=== PATIENT | male | born 1940 | race Caucasian/White ===

== ENCOUNTER 2020-10-29 17:25 | Outpatient (CLI) | payer MEDICARE | END 2020-10-29 17:26 | disposition critical access hospital (66) | LOC: EMS 17:25 | DX: Z04.3 Encounter for examination and observation following other accident (principal); M25.552 Pain in left hip; R06.02 Shortness of breath | CPT/HCPCS: A0425; A0429 ==

== ENCOUNTER 2020-10-29 17:45 | Inpatient (IN) | payer MEDICARE ==
[2020-10-29] MEDS ORDERED: diltiaZEM INJ 5 MG/ML VIAL IVP STA (18:12)
[2020-10-29 18:15] LABS: BASOPHILS % (AUTO) 0.3 %; EOSINOPHILS # (AUTO) 0.3 10^3/uL (0.0-0.7); EOSINOPHILS % (AUTO) 1.9 %; HGB - HEMOGLOBIN 9.9 g/dL (14.0-18.0); LYMPHOCYTES # (AUTO) 1.3 10^3/uL (1.5-3.5); LYMPHOCYTES % (AUTO) 8.9 %; MEAN CORPUSCULAR HEMOGLOBIN 25.1 pg (27.0-31.0); MEAN CORPUSCULAR VOLUME 83.8 fL (80.0-94.0); MEAN PLATELET VOLUME 10.7 fL (7.4-11.4); MONOCYTES # (AUTO) 0.7 10^3/uL (0.0-1.0); MONOCYTES % (AUTO) 4.8 %; NEUTROPHILS # (AUTO) 11.8 10^3/uL (1.5-6.6); NEUTROPHILS % (AUTO) 83.3 %; PLT - PLATELET COUNT 475 10^3/uL (130-450); RED BLOOD COUNT 3.94 10^6/uL (4.70-6.10); RED CELL DISTRIBUTION WIDTH 17.2 % (12.0-15.0); WHITE BLOOD COUNT 14.1 x10^3/uL (4.8-10.8)
[2020-10-29] MEDS ORDERED: SODIUM CHLORIDE 0.9% 1,000 ML IV STA ×2 (18:15)
[2020-10-29] MEDS ORDERED: IPRATROPIUM/ALBUTEROL 3 ML NEB INH STA (18:16)
--- NOTE | 2020-10-29 18:16 | ED Physician Documentation ---
History of Present Illness - Stated complaint Stated Complaint: GLF - Chief complaint Chief Complaint: Resp - History obtained from History obtained from: Patient, EMS - History of Present Illness Timing: Today Pain level max: 5 Pain level now: 4 - Additonal information Additional information: Patient is an 79-year-old male who presents to the emergency department stating that he tripped and fell at home today. He was unable to get up off the ground. He has COPD and is on 3 L of home O2. He was found by EMS with an O2 sat of 80. He denies any recent illnesses. Nothing makes it better or worse. He states that his left hip does hurt. Unsure if he struck his head or not. Is not on blood thinners. States his tetanus shot is up-to-date Review of Systems Ten Systems: 10 systems reviewed and negative Constitutional: denies: Fever, Chills Ears: denies: Ear pain Nose: denies: Rhinorrhea / runny nose, Congestion Cardiac: denies: Chest pain / pressure Respiratory: denies: Cough GI: denies: Nausea, Vomiting, Diarrhea, Hematemesis, Bloody / black stool Skin: denies: Rash Musculoskeletal: denies: Neck pain, Back pain Neurologic: denies: Headache PD PAST MEDICAL HISTORY - Past Medical History Cardiovascular: None Respiratory: COPD Neuro: None Endocrine/Autoimmune: None - Present Medications Home Medications: Ambulatory Orders Medication Instructions Recorded Confirmed Albuterol 1 puffs INH DAILY 12/13/19 10/29/20 Ipratropium [Atrovent] 0.5 mg INH TID #30 neb 12/13/19 10/29/20 - Allergies Allergies/Adverse Reactions: Allergies Allergy/AdvReac Type Severity Reaction Status Date / Time No Known Drug Allergies Allergy Verified 10/29/20 17:56 - Social History Does the pt smoke?: No Smoking Status: Never smoker Does the pt drink ETOH?: No Does the pt have substance abuse?: No PD ED PE NORMAL - Vitals Vital signs reviewed: Yes - General General: Alert and oriented X 3, No acute distress, Other (pale appearing) - HEENT HEENT: PERRL, Moist mucous membranes, Pharynx benign - Neck Neck: Supple, no meningeal sign - Cardiac Cardiac: Other (tachycardic) - Respiratory Respiratory: Other (diminished BS bilaterally. ) - Abdomen Abdomen: Soft, Non tender, Non distended - Derm Derm: Warm and dry - Extremities Extremities: Other (TTP over the L hip, limited ROM 2/2 pain. abrasion to the left elbow. otherwise normal extremity exam. ) - Neuro Neuro: Alert and oriented X 3 - Psych Psych: Normal mood, Normal affect Results - Vitals Vitals: Vital Signs - 24 hr 10/29/20 10/29/20 10/29/20 17:50 18:28 18:31 Temperature 36.8 C Heart Rate 146 H 114 H 118 H Respiratory 18 26 H 36 H Rate Blood Pressure 148/95 H 115/75 O2 Saturation 96 92 10/29/20 10/29/20 10/29/20 19:01 19:07 19:30 Temperature Heart Rate 132 H 127 H 127 H Respiratory 37 H 61 H 23 Rate Blood Pressure 144/81 H 142/79 H O2 Saturation 88 L 92 10/29/20 10/29/20 10/29/20 20:35 21:02 21:30 Temperature Heart Rate 134 H 139 H 141 H Respiratory 33 H 30 H 33 H Rate Blood Pressure 127/88 H 128/80 148/84 H O2 Saturation 95 92 89 L 10/29/20 21:50 Temperature Heart Rate 138 H Respiratory 31 H Rate Blood Pressure 126/69 O2 Saturation 91 L Oxygen O2 Source Nasal cannula Oxygen Flow Rate 3 - Labs Labs: Laboratory Tests 10/29/20 10/29/20 10/29/20 18:10 18:10 18:10 WBC 14.1 H RBC 3.94 L Hgb 9.9 L Hct 33.0 L MCV 83.8 MCH 25.1 L MCHC 30.0 L RDW 17.2 H Plt Count 475 H MPV 10.7 Neut # (Auto) 11.8 H Lymph # (Auto) 1.3 L Terry # (Auto) 0.7 Eos # (Auto) 0.3 Baso # (Auto) 0.0 Absolute Nucleated RBC 0.00 Nucleated RBC % 0.0 Sodium 139 Potassium 4.6 Chloride 97 L Carbon Dioxide 33 H Anion Gap 9.0 BUN 16 Creatinine 0.6 Estimated GFR (MDRD) 129 Glucose 173 H Calcium 8.8 Total Bilirubin 0.4 AST 17 ALT 14 Alkaline Phosphatase 54 Troponin I High Sens 21.9 H* Total Protein 7.1 Albumin 3.5 Globulin 3.6 Albumin/Globulin Ratio 1.0 Lipase 27 - Rads (name of study) cxr Radiology: Prelim report reviewed, EMP read contemporaneously, See rad report (No acute cardiopulmonary abnormality. Emphysematous change.) head CT Radiology: Prelim report reviewed, EMP read contemporaneously, See rad report (No acute intracranial abnormality) cervical spine CT Radiology: Prelim report reviewed, EMP read contemporaneously, See rad report (IMPRESSION: No acute osseous abnormality. Secretions in the upper trachea. The fluid in the upper esophagus. Patient may be at increased risk for aspiration.) CT LE Radiology: Prelim report reviewed, EMP read contemporaneously, See rad report (1. Nondisplaced fracture of the left femoral neck. 2. Bones are osteopenic. 3. Prominent stool the colon is suspicious for constipation. 4. Abdominal aortic aneurysm measuring 3.3 cm. ) PD MEDICAL DECISION MAKING - ED course Complexity details: reviewed results, re-evaluated patient, considered differential, d/w patient, d/w family, d/w financial consultant ED course: 79-year-old male presents to the emergency department after a fall. He is very pale appearing. Family states that this is normal for him and he never goes outside or is exposed to sunlight. Patient has a significant history of COPD. He was given Solu-Medrol and several breathing treatments here. His oxygenation did improve, he is on 3 L normally at home. The patient also was significantly tachycardic and 10 mg of diltiazem was given he does appear to be in atrial fibrillation with rapid ventricular response. Patient states he does not have a history of this. Will be placed on a diltiazem drip to control his rate. Initial x-ray did not reveal a fracture of the left hip, however CT was performed and this does show a nondisplaced left femoral neck fracture. Discussed the case with Dr. Silverio, he will consult on the patient in the morning. Reviewing the images, this may be a nonoperative fracture. Discussed this with the patient and his daughter. Also discussed CODE STATUS with the patient and his daughter. He does not want CPR or intubation. He would like to be DNR. Patient will be admitted for further care. This document was made in part using voice recognition software. While efforts are made to proofread this document, sound alike and grammatical errors may occur. Departure - Departure Disposition: [facility] DC/Xfer Clinical Impression: COPD exacerbation, New onset atrial fibrillation, Atrial fibrillation with rapid ventricular response Fracture of femoral neck, left Qualifiers: Encounter type: initial encounter Fracture type: closed Qualified Code(s): S72.002A - Fracture of unspecified part of neck of left femur, initial encounter for closed fracture Condition: Stable
[2020-10-29 18:30] LABS: ALBUMIN 3.5 g/dL (3.2-5.5); BILIRUBIN,TOTAL 0.4 mg/dL (0.2-1.0); CALCIUM 8.8 mg/dL (8.5-10.3); CREATININE 0.6 mg/dL (0.6-1.2); POTASSIUM 4.6 mmol/L (3.5-5.0); TOTAL PROTEIN 7.1 g/dL (6.7-8.2)
[2020-10-29] MEDS ORDERED: methylPREDNISolone SUCCINATE 125 MG/2 ML VIAL IVP STA (18:47)
[2020-10-29] MEDS ORDERED: ALBUTEROL NEB 2.5 MG/3 ML INH ONE (18:55)
--- NOTE | 2020-10-29 19:11 | XRAY Report ---
PROCEDURE: Chest 1 View X-Ray INDICATIONS: dyspnea TECHNIQUE: One view of the chest was acquired. COMPARISON: CXR 12/13/2019. FINDINGS: Surgical changes and devices: None. Lungs and pleura: No pleural effusions or pneumothorax. No consolidation. Prominent lung volumes. Em physematous change. Mediastinum: Mediastinal contours appear normal. Heart size is normal. Bones and chest wall: No suspicious bony lesions. Overlying soft tissues appear unremarkable. IMPRESSION: No acute cardiopulmonary abnormality. Emphysematous change. Reviewed by: Telly Ojeda MD on 10/29/2020 7:10 PM PDT Approved by: Telly Ojeda MD on 10/29/2020 7:10 PM PDT Station ID: [id number]
--- NOTE | 2020-10-29 19:13 | XRAY Report ---
PROCEDURE: Pelvis 1 View INDICATIONS: fall, left hip pain TECHNIQUE: 1 view(s) of the pelvis acquired. COMPARISON: None. FINDINGS: Bones: No fractures is identified on this single projection. No dislocation. No suspicious bony les ions. Soft tissues: Prominent stool the colon. No suspicious soft tissue calcifications. IMPRESSION: No fracture identified on this single projection. Prominent stool the visualized colon. Reviewed by: Telly Ojeda MD on 10/29/2020 7:12 PM PDT Approved by: Telly Ojeda MD on 10/29/2020 7:12 PM PDT Station ID: [id number]
[2020-10-29] MEDS ORDERED: ALBUTEROL NEB 2.5 MG/3 ML INH STA ×2 (19:26→22:11)
--- NOTE | 2020-10-29 20:58 | CT Report ---
PROCEDURE: HEAD WO INDICATIONS: fall head injury TECHNIQUE: Noncontrast 4.5 mm thick angled axial sections acquired from the foramen magnum to the vertex. For r adiation dose reduction, the following was used: automated exposure control, adjustment of mA and/or kV according to patient size. COMPARISON: None. FINDINGS: Image quality: Excellent. CSF spaces: Basal cisterns are patent. No extra-axial fluid collections. Ventricles are normal in size and shape. Brain: No midline shift. No intracranial masses or hemorrhage. No area of hypodensity in a large va scular distribution to suggest infarction. Periventricular hypodensity consistent with chronic microv ascular ischemic disease. Skull and face: Calvarium and visualized facial bones are intact, without suspicious lesions. Sinuses: Visualized sinuses and mastoids are clear. IMPRESSION: No acute intracranial abnormality. Reviewed by: Telly Ojeda MD on 10/29/2020 8:57 PM PDT Approved by: Telly Ojeda MD on 10/29/2020 8:57 PM PDT Station ID: [id number]
--- NOTE | 2020-10-29 21:01 | CT Report ---
PROCEDURE: CERVICAL SPINE WO INDICATIONS: fall, neck injury TECHNIQUE: Noncontrast 3 mm thick sections acquired from the skull base to the T4 level. Sagittal and coronal r eformats were then constructed. For radiation dose reduction, the following was used: automated exp osure control, adjustment of mA and/or kV according to patient size. COMPARISON: None. FINDINGS: Image quality: Fair. Bones: No fractures or dislocations. Moderate degenerative change in the cervical spine. Visualized superior ribs are intact. Soft tissues: Prevertebral soft tissues are normal in thickness. No paravertebral hematomas. No ap ical pneumothoraces. Particular thickening at the lung apices. There is trace secretions in the trach ea. There is fluid in the upper esophagus. IMPRESSION: No acute osseous abnormality. Secretions in the upper trachea. The fluid in the upper esophagus. Patient may be at increased risk f or aspiration. Reviewed by: Telly Ojeda MD on 10/29/2020 9:00 PM PDT Approved by: Telly Ojeda MD on 10/29/2020 9:00 PM PDT Station ID: [id number]
--- NOTE | 2020-10-29 21:06 | CT Report ---
PROCEDURE: LOWER EXTREMITY WO - LT INDICATIONS: fall, hip pain TECHNIQUE: Noncontrast 3 mm axial sections acquired of the left hip, with coronal and sagittal reformats. COMPARISON: 1 view pelvic radiograph earlier today. FINDINGS: Image quality: Fair. Bones: Nondisplaced fracture of the left femoral neck. No dislocation. The bones are osteopenic. Mod erate hip DJD bilaterally. No suspicious osseous lesion. Soft tissues: No large hematoma. No free fluid in the pelvis. Infrarenal abdominal aortic aneurysm m easuring 3.3 cm. Right common iliac artery measures 3.3 cm. Left common iliac artery measures 1.9 cm. There is prominent stool the colon. IMPRESSION: 1. Nondisplaced fracture of the left femoral neck. 2. Bones are osteopenic. 3. Prominent stool the colon is suspicious for constipation. 4. Abdominal aortic aneurysm measuring 3.3 cm. Reviewed by: Telly Ojeda MD on 10/29/2020 9:05 PM PDT Approved by: Telly Ojeda MD on 10/29/2020 9:05 PM PDT Station ID: [id number]
[2020-10-29] MEDS ORDERED: fentaNYL 100 MCG/2 ML VIAL IVP STA (21:37)
[2020-10-29] MEDS ORDERED: DILTIAZEM 125 MG in DEXTROSE 5% 100 ML IV STA (21:38)
[2020-10-29] MEDS ORDERED: ONDANSETRON 4 MG/2 ML VIAL IVP PRN (21:40)
[2020-10-29] MEDS ORDERED: HYDROcod/ACETAM 5/325 MG TABLET PO PRN (21:40)
[2020-10-29] MEDS ORDERED: ACETAMINOPHEN 325 MG TABLET PO PRN (21:40)
[2020-10-29] MEDS ORDERED: diltiaZEM INJ 5 MG/ML VIAL ONE (21:52)
--- NOTE | 2020-10-29 21:53 | HISTORY & PHYSICAL EXAMINATION ---
Chief Complaint - Chief Complaint Chief Complaint: dyspnea, hypoxia, afib with rvr, ground level fall with left hip pain History of Present Illness - Admitted From Admitted From:: [facility] ED - History Obtained From Records Reviewed: yes History obtained from: patient - History of Present Illness HPI Comment/Other: Patient he is very frail/cachectic 79-year-old male who presented to the ED after a fall. This happened around 5 PM. He reported that his legs just gave out on the him while he was trying to go to make something for dinner. It was an unwitnessed fall. His neighbor came over to bring him something to eat and found him on the floor. He had just fallen. He lives alone but his daughter brings him food 2-3 times weekly. Also, a home service called [id number] Comes to his house twice a week and helps him with shaving, bathing and cutting his hand. The patient denied chest pain, abdominal pain, nausea, vomiting, fever or chills. When EMS arrived the patient's oxygen saturation was 80%. He has severe/end- stage COPD and emphysema and uses 3 L of oxygen via nasal cannula at home. His daughter who was at bedside reports that the patient's breathing has been progressively worsening. In the ED he was noted to be in atrial fibrillation with rapid ventricular rhythm, with a heart rate as high as the 140s. He was given a couple doses of [id number] IV boluses and then started on a diltiazem drip. Work-up also included a CT of the lower extremities which showed a Nondisplaced left femoral neck fracture. He is being admitted for further treatment. History - Past Medical History Cardiovascular: reports: None Respiratory: reports: COPD Neuro: reports: None Endocrine/Autoimmune: reports: None MRSA Hx?: No - Past Surgical History General: reports: Other (x ap for adhesions) - Family & Social History Family History Comment/Other: His daughter who helped provide the history denies any significant family history Living arrangement: At home Living Situation: Alone Social History Notes: The patient lives at home alone. His daughter brings him food 2-3 times a week. A home service by name [id number] comes twice a week and helps him with shaving, bathing and cutting his hair. The patient has smoked for over 70 years and for a long time smoked 3 packs/day. He quit smoking in April 2020. He quit drinking alcohol 27 years ago and does not use any illicit drugs. - POLST Patient has POLST: No POLST Status: DNR Meds/Allgy - Home Medications Home Medications: Ambulatory Orders Medication Instructions Recorded Confirmed Albuterol 1 puffs INH DAILY 12/13/19 10/29/20 Ipratropium [Atrovent] 0.5 mg INH TID #30 neb 12/13/19 10/29/20 - Allergies Allergies/Adverse Reactions: Allergies Allergy/AdvReac Type Severity Reaction Status Date / Time No Known Drug Allergies Allergy Verified 10/29/20 17:56 Review of Systems - Constitutional Constitutional: reports: Weakness, Weight loss, Other (frail, cachexic, pale). denies: Fatigue, Fever, Chills - Eyes Eyes: denies: Pain, Vision loss - Ears, Nose & Throat Ears, Nose & Throat: denies: Ear pain - Cardiovascular Cariovascular: reports: Irregular heart rate. denies: Chest pain, Edema, Lightheadedness, Syncope - Respiratory Respiratory: reports: Wheezing, SOB at rest, SOB with exertion. denies: Cough, Sputum production - Gastrointestinal Gastrointestinal: denies: Abdominal pain, Abdominal distention, Nausea, Vomiting, Reflux/heartburn - Genitourinary Genitourinary: denies: Dysuria, Frequency, Urgency, Hematuria - Musculoskeletal Musculoskeletal: reports: Joint pain (left hip). denies: Muscle pain, Back pain, Muscle aches - Integumentary Integumentary: denies: Rash, Pruritis, Lesions, Dryness - Neurological Neurological: denies: General weakness, Focal weakness, Headache, Dizziness - Psychiatric Psychiatric: denies: Depression, Anxiety - Endocrine Endocrine: denies: Polyuria, Polydypsia - Hematologic/Lymphatic Hematologic/Lymphatic: denies: Anemia, Bruising, Petechiae Prior Level of Functionality: The patient lives at home alone. His daughter brings him food 2-3 times a week. A home service by name [id number] comes twice a week and helps him with shaving, bathing and cutting his hair. He gets around walking on his own but this has become difficult to do lately due to his progressively worsening breathing. Exam - Vital Signs Vital Signs: Vital Signs x48h Temp Pulse Resp BP Pulse Ox 06/16/21 21:50 138 H 31 H 126/69 91 L 10/29/20 21:30 141 H 33 H 148/84 H 89 L 10/29/20 21:02 139 H 30 H 128/80 92 10/29/20 20:35 134 H 33 H 127/88 H 95 10/29/20 19:30 127 H 23 142/79 H 92 10/29/20 19:07 127 H 61 H 10/29/20 19:01 132 H 37 H 144/81 H 88 L 10/29/20 18:31 118 H 36 H 115/75 92 10/29/20 18:28 114 H 26 H 10/29/20 17:50 36.8 C 146 H 18 148/95 H 96 - Physical Exam General Appearance: positive: Moderate distress, Severe distress, Lethargic, Other (Frail, ematiated, cachexic, pale) Eyes Bilateral: positive: PERRL, EOMI ENT: positive: Dry mucous membranes Neck: positive: No JVD, Trachea midline Respiratory: positive: Chest non-tender, Wheezes, Other (decreased breath sounds) Cardiovascular: positive: No murmur, Irregularly irregular, Tachycardia Abdomen: positive: Non-tender, No organomegaly, Nml bowel sounds, No distention. negative: Guarding, Rebound Back: positive: Nml inspection Skin: positive: No rash, Warm, Dry, Pallor Extremities: positive: No pedal edema Neurologic/Psychiatric: positive: Oriented x3, Mood/affect nml Conclusion/Plan - Problem List (1) COPD exacerbation Conclusion/Plan: End Stage Patient is normally on 3 L of oxygen at home. He currently requires 5 L of oxygen To keep his oxygen saturation above 90. Chest x-ray was unremarkable for any acute cardiopulmonary abnormality DuoNeb ordered every 4 hours as needed. Solu-Medrol 80 mg IV 3 times daily ordered. Budesonide and formeterol orderedas well The patient is frail, emaciated, cachectic and very pale. As a result of his physical appearance and clinical presentation I had a further conversation with the patient's daughter highlighting my concern that the patient may be eminently dying. His respiratory status and overall health status would likely limit the ability for any surgery. The left hip fracture further contributes to an increased morbidity. I expressed concern that the patient may not last the night. She is currently overwhelmed by the news and will need some time to process it. However she is agreeable to talking with the hospice service and being informed of the services they can offer. This will be done in the morning. (2) Atrial fibrillation with rapid ventricular response Conclusion/Plan: Patient is on diltiazem drip. 2D echocardiogram ordered for the morning. (3) NSTEMI (non-ST elevated myocardial infarction) Conclusion/Plan: Initial troponin was 21.9. Next check was 174.2 then 302.1. I discussed this finding with the patient's daughter Estephania informing her of what they mean and what further work up and intervention would require. She does not wish to undertake any further cardiac work up or treatment. We will proced with the plan of contacting the hospice team in the morning. (4) Nondisplaced fracture of neck of left femur Conclusion/Plan: Pain management with Tylenol, [place] and oral Dilaudid as needed. Dr. Silverio of orthopedic surgery was contacted by Dr. Tamayo. He will see the patient in the morning Official orthopedic consult placed. (5) Leukocytosis Conclusion/Plan: Reactive versus infectious. Patient's white blood cell count is 14. He is afebrile. We will monitor for now. If worsening with a.m. labs, will consider getting blood cultures, UA and possibly starting on antibiotics. (6) Constipation Conclusion/Plan: Miralax and magnesium citrate ordered - Lab Results Fish Bones: 10/30/20 05:19 10/30/20 05:19 Core Measures - Anticipated LOS I expect patient to be DC'd or transferred within 96 hours.: Yes - DVT/VTE - Prophylaxis VTE/DVT Device ordered at admit?: Yes
[2020-10-29] MEDS ORDERED: diltiaZEM INJ 125 MG in DEXTROSE 5% 100 ML IV SCH (22:00)
[2020-10-29] MEDS ORDERED: polyethylene glycoL 3350 17 GM PACKET PO PRN (22:09)
[2020-10-29] MEDS ORDERED: HYDROmorphone 0.5 MG/0.5 ML SYRINGE IVP PRN (22:09)
[2020-10-29] MEDS ORDERED: MAGNESIUM CITRATE 296 ML BOTTLE PO STA (22:10)
[2020-10-29 22:24] LABS: B. PARAPERTUSSIS- RESP PCR PAN NOT DETECTED; B. PERTUSSIS- RESP PCR PANEL NOT DETECTED; C. PNEUMONIAE- RESP PCR PANEL NOT DETECTED; CORONAVIRUS 229E-RESP PCR NOT DETECTED; CORONAVIRUS HKU1-RESP PCR NOT DETECTED; CORONAVIRUS NL63-RESP PCR NOT DETECTED; CORONAVIRUS OC43-RESP PCR NOT DETECTED; HUMAN METAPNEUMOVIRUS NOT DETECTED; INFLUENZA A- RESP PCR PANEL NOT DETECTED; INFLUENZA B - RESP PCR PANEL NOT DETECTED; M. PNEUMONIAE- RESP PCR PANEL NOT DETECTED; PARAINFLUENZA VIRUS 1 NOT DETECTED; PARAINFLUENZA VIRUS 2 NOT DETECTED; PARAINFLUENZA VIRUS 3 NOT DETECTED; PARAINFLUENZA VIRUS 4 NOT DETECTED; RHINOVIRUS/ENTEROVIRUS NOT DETECTED; RSV- RESP PCR PANEL NOT DETECTED; SARS-CoV-2 -RESP PCR PANEL NOT DETECTED
[2020-10-29] MEDS: MORPHINE 2 MG/ML CARPUJECT IVP PRN (23:35)
[2020-10-30] MEDS: IPRATROPIUM/ALBUTEROL 3 ML NEB INH PRN ×2 (00:57→20:17)
[2020-10-30] MEDS: methylPREDNISolone SUCCINATE 40 MG/ML VIAL IVP SCH ×4 (01:00→21:33)
[2020-10-30] MEDS: SODIUM CHLORIDE 0.9% 1,000 ML IV SCH ×2 (01:33→08:55)
[2020-10-30] MEDS: MORPHINE 2 MG/ML CARPUJECT IVP PRN ×4 (01:34→20:09)
[2020-10-30 05:37] LABS: BASOPHILS % (AUTO) 0.2 %; CALCIUM 8.4 mg/dL (8.5-10.3); CREATININE 0.6 mg/dL (0.6-1.2); HCT - HEMATOCRIT 31.1 % (42.0-52.0); HGB - HEMOGLOBIN 9.4 g/dL (14.0-18.0); LYMPHOCYTES % (AUTO) 2.3 %; MEAN CORPUSCULAR HEMOGLOBIN 25.4 pg (27.0-31.0); MEAN CORPUSCULAR HGB CONC 30.2 g/dL (32.0-36.0); MEAN CORPUSCULAR VOLUME 84.1 fL (80.0-94.0); MEAN PLATELET VOLUME 11.6 fL (7.4-11.4); NEUTROPHILS % (AUTO) 95.6 %; PLT - PLATELET COUNT 416 10^3/uL (130-450); POTASSIUM 5.5 mmol/L (3.5-5.0); RED CELL DISTRIBUTION WIDTH 17.6 % (12.0-15.0); WHITE BLOOD COUNT 30.2 x10^3/uL (4.8-10.8)
[2020-10-30 05:49] LABS: ABNORMAL LYMPHS % (MANUAL) 0 %
[2020-10-30 06:15] LABS: BAND NEUTROPHILS % (MANUAL) 16 %; DIFFERENTIAL COMMENT MANUAL DIFFERENTIAL; LYMPHOCYTES # (MANUAL) 1.5 10^3/uL (1.5-3.5); LYMPHOCYTES % (MANUAL) 5 %; MONOCYTES # (MANUAL) 0.3 10^3/uL (0.0-1.0); NEUTROPHILS # (MANUAL) 28.4 10^3/uL (1.5-6.6); PLATELET ESTIMATE, MANUAL NORMAL (130-450,000) (NORMAL); RBC MORPHOLOGY (MULTIPLE) NORMAL APPEARANCE (NORMAL)
[2020-10-30] MEDS: SODIUM CHLORIDE FLUSH 0.9% 10 ML SYRINGE IVP SCH ×4 (07:04→20:10)
[2020-10-30] MEDS: BUDESONIDE 0.5 MG/2 ML NEB INH SCH ×2 (07:18→20:16)
[2020-10-30] MEDS: FORMOTEROL FUMARATE NEB 20 MCG/2 ML INH SCH ×2 (07:18→20:17)
--- NOTE | 2020-10-30 08:59 | PHARMACY PROGRESS NOTE ---
- Best Possible Medication History Admit Date and Time: 10/29/202139 Processed by: Nursing Medication History completed: Yes Patient Interview: Completed (med rec completed by nursing) As the person ultimately responsible for medication therapy, providers are able to order a medication from an existing home medication list in [facility] via the "Reconcile Routine" prior to Confirmation of that medication by business support liaison. Such practice is discouraged except when the physician, in their clinical judgment, deems that a medical need exists for a medication without regard to previous use.
--- NOTE | 2020-10-30 12:21 | PROVIDER PROGRESS NOTE ---
Assessment/Plan - Problem List (1) Acute respiratory failure with hypoxia Assessment/Plan: Patient has baseline chronic desaturation requiring 3 L of oxygen at home, which he uses for COPD This exacerbation is likely from COPD exacerbation and possibly CHF from an NY Continue with IV steroids, nebs, supplemental oxygen. Treat the underlying cardiac problem of A. fib with RVR and management of the acute NY (2) COPD exacerbation Assessment/Plan: Continue with empiric treatment with IV steroids, nebs and supplemental oxygen (3) NSTEMI (non-ST elevated myocardial infarction) Assessment/Plan: EKG changes are diffuse because of the rapid A. fib. The troponins are climbing, the last one was 300. We will order an Echo to assess LV regional wall motion and LVEF Will continue with Cardizem for rate control, changing over to p.o. Cardizem or p.o. beta-ilir when he awakens and can swallow We will not give Lovenox or heparin at a therapeutic dose because of the fractured hip and risk of bleeding into that fracture area. Will give Lipitor if he awakens more to swallow. Aspirin would be used, however he is too somnolent to swallow, and turning him for per rectum dosing would be too painful. He is a very poor candidate for undergoing hip surgery, in the face of COPD exacerbation and an acute myocardial infarction. This was discussed with the Orthopedist and also with the daughter and son-in-law who are at the bedside. Continue with supportive care. The daughter is considering transitioning his care to just comfort and care under Hospice for him. Because his respiratory and cardiac status are so poor, he may be imminently dying. But if he is survives these first 24 hours, will order Hospice to see him. (4) New onset atrial fibrillation Assessment/Plan: It appears the etiology of this new Afib is an acute NY, since the troponins are more than doubling. We will also check a TSH to rule out hyperthyroidism. IV Cardizem for rate control will be tapered to off as p.o. Cardizem is started. Currently his CHADS2 score is 1 (age), until we know his EF by Echo, it may be 2 (CHF). However, because of his femur fracture, he is not a candidate for full dose anticoagulation due to potential bleeding into the new fracture. Aspirin would be used, however he is too somnolent to swallow, and turning him for per rectum dosing would be too painful. (5) Atrial fibrillation with rapid ventricular response Assessment/Plan: Continue management as written above for rate control and he is not an anticoagulation candidate but could use daily aspirin for stroke prophylaxis. (6) Fracture of femoral neck, left Qualifiers: Encounter type: subsequent encounter Fracture type: closed Qualified Code(s): S72.002A - Fracture of unspecified part of neck of left femur, initial encounter for closed fracture Assessment/Plan: He is not a candidate for surgery which would be extremely high risk in the face of acute NY and COPD exacerbation and underlying cachexia and malnutrition This plan would make him bedbound for the rest of his life. This was explained to the family at bedside today. Continue with pain control meds. Awaiting any further recommendations from Orthopedics. (7) Pulmonary cachexia due to COPD Assessment/Plan: Daughter described to me that he has been unable to eat for a long time as it is "too difficult to eat because of being constantly short of breath". He also is a poor drinker (hydration). If he does survive, he will need nutritional assistance for increase calorie intake. (8) Anemia Assessment/Plan: Despite being hypoxic chronically, he does not have a high hemoglobin therefore he is a fairly anemic for his state. I suspect this is anemia of chronic disease secondary to severe malnutrition We will check B12, folate levels and iron stores and consider p.o. replacement if low. (9) Severe protein-calorie malnutrition Assessment/Plan: This patient has severe cachexia, his ribs and facial bones are visible under his skin, musculature of his whole body is extremely emaciated. Dietary consult will be ordered. (10) Elevated WBC count Assessment/Plan: This could be demargination from extreme stress due to the acute NY and the fracture. Source of infection is negative thus far but his urinalysis is still pending and possibly a pneumonia that has not blossomed because of dehydration. Follow CBC daily. Consider starting empiric antibiotics if any area appears to have a source of infection. (11) Somnolence Assessment/Plan: He has only received 1 dose of morphine IV and is sleeping all day from it. His respiratory status however appears comfortable and he is obviously not in pain. We will decrease the amount and frequency of iv morphine. - Current Meds Current Meds: Current Medications Generic Name Dose Route Start Last Admin Trade Name Freq PRN Reason Stop Dose Admin Albuterol/Ipratropium 3 ml 10/29/20 21:50 10/30/20 00:57 Ipratropium/Albuterol 3 Ml Neb INH 3 ml Q4HR PRN Administration Wheezing Budesonide 0.5 mg 10/30/20 07:00 10/30/20 07:18 Budesonide 0.5 Mg/2 Ml Neb INH 0.5 mg RTBID MO Administration Formoterol Fumarate 20 mcg 10/30/20 07:00 10/30/20 07:18 Formoterol Fumarate Neb 20 Mcg/2 Ml INH 20 mcg RTBID MO Administration Sodium Chloride 1,000 mls @ 100 mls/hr 10/29/20 22:00 10/30/20 08:55 Normal Saline 0.9% IV 100 mls/hr .Q10H MO Administration Diltiazem HCl 125 mg/ Dextrose 125 mls @ 5 mls/hr 10/29/20 22:00 10/30/20 09:26 IV 10 mg/hr .Q25H MO 10 mls/hr Administration Protocol 5 MG/HR Methylprednisolone 80 mg 10/29/20 22:00 10/30/20 06:59 Methylprednisolone Succinate 40 Mg/Ml Vial IVP 80 mg TID MO Administration Morphine Sulfate 2 mg 10/29/20 23:22 10/30/20 09:00 Morphine 2 Mg/Ml Carpuject IVP 2 mg Q2HR PRN Administration PAIN Sodium Chloride 10 ml 10/30/20 01:00 10/30/20 09:14 Sodium Chloride Flush 0.9% 10 Ml Syringe IVP 10 ml 0100,0900,1700 MO Administration - Lab Result Fish Bone Diagrams: 10/30/20 05:19 10/30/20 05:19 - Additional Planning My Orders: My Active Orders 10/30/20 10:54 Miscellaenous Nursing Order [RC] ONCE 10/30/20 Lunch DIET [Dysphagia Puree Diet] [DIET] 10/30/20 12:00 [id number] [Cardizem] 60 mg PO Q6HR 10/31/20 08:00 Echo Transthoracic Complete [ECHO] Routine Subjective - Subjective Patient Reports: Fatigue (Sleeping after receiving Morphine iv) Nursing Reports: Sedated Objective Vital Signs: Vital Signs - 24 hr 10/29/20 10/29/2010/29/21 17:50 18:28 18:31 Temperature 36.8 C Heart Rate 146 H 114 H 118 H Heart Rate [ Apical] Respiratory 18 26 H 36 H Rate Blood Pressure 148/95 H 115/75 Blood Pressure [Right Brachial artery] O2 Saturation 96 92 10/29/20 10/29/20 10/29/20 19:01 19:07 19:30 Temperature Heart Rate 132 H 127 H 127 H Heart Rate [ Apical] Respiratory 37 H 61 H 23 Rate Blood Pressure 144/81 H 142/79 H Blood Pressure [Right Brachial artery] O2 Saturation 88 L 92 10/29/20 10/29/20 10/29/20 20:35 21:02 21:30 Temperature Heart Rate 134 H 139 H 141 H Heart Rate [ Apical] Respiratory 33 H 30 H 33 H Rate Blood Pressure 127/88 H 128/80 148/84 H Blood Pressure [Right Brachial artery] O2 Saturation 95 92 89 L 10/29/20 10/29/20 10/30/20 21:50 23:00 00:00 Temperature 36.7 C Heart Rate 138 H Heart Rate [ 123 H 107 H Apical] Respiratory 31 H 31 H 26 H Rate Blood Pressure 126/69 Blood Pressure 123/77 84/58 L [Right Brachial artery] O2 Saturation 91 L 88 L 98 10/30/20 10/30/20 10/30/20 01:00 02:00 03:00 Temperature Heart Rate 104 H Heart Rate [ 105 H 99 109 H Apical] Respiratory 25 H 16 33 H Rate Blood Pressure Blood Pressure 94/62 88/62 L 135/77 H [Right Brachial artery] O2 Saturation 99 99 94 10/30/20 10/30/20 10/30/20 04:00 05:00 05:42 Temperature 36.6 C 36.8 C Heart Rate 104 H Heart Rate [ 104 H 97 Apical] Respiratory 32 H 23 22 Rate Blood Pressure Blood Pressure 134/84 H 114/76 [Right Brachial artery] O2 Saturation 94 98 94 10/30/20 10/30/20 10/30/20 06:00 07:00 07:22 Temperature Heart Rate 89 Heart Rate [ 94 96 Apical] Respiratory 23 30 H 27 H Rate Blood Pressure Blood Pressure 109/75 126/79 [Right Brachial artery] O2 Saturation 99 97 10/30/20 10/30/20 10/30/20 08:00 09:00 09:26 Temperature 36.3 C L Heart Rate Heart Rate [ 88 87 Apical] Respiratory 14 16 Rate Blood Pressure 105/68 Blood Pressure 103/69 105/68 [Right Brachial artery] O2 Saturation 98 97 10/30/20 10/30/20 10:00 11:00 Temperature Heart Rate Heart Rate [ 83 82 Apical] Respiratory 12 21 Rate Blood Pressure Blood Pressure 90/63 90/64 [Right Brachial artery] O2 Saturation 99 98 Oxygen O2 Source Nasal cannula Oxygen Flow Rate 3 I&O (Last 24 Hrs): Intake and Output Totals x24h 10/28/20 10/29/20 10/30/20 23:59 23:59 23:59 Intake Total 7635.516 1084.000 Output Total 625 Balance 3817.149 7640.000 General: Other (Asleep) HEENT: Other (Cachectic with temporal wasting, edentulous) Neck: Other ((+) JVD in 45 degree upright position) Neuro: Other (Sleeping, was moving spontaneously previously) Cardiovascular: Other (Very distant heart sounds, no murmur heard) Respiratory: Wheezes, Rhonchi (Scattered), Other (Prolonged exp phase) Abdomen: Soft, Other (Scaphoid thin abdomen) Extremities: No clubbing, No edema, No tenderness/swelling, Other (Thin, muscle wasting) - Results Results: Laboratory Results WBC 30.2 x10^3/uL (4.8-10.8) H 10/30/20 05:19 RBC 3.70 10^6/uL (4.70-6.10) L 10/30/20 05:19 Hgb 9.4 g/dL (14.0-18.0) L 10/30/20 05:19 Hct 31.1 % (42.0-52.0) L 10/30/20 05:19 MCV 84.1 fL (80.0-94.0) 10/30/20 05:19 MCH 25.4 pg (27.0-31.0) L 10/30/20 05:19 MCHC 30.2 g/dL (32.0-36.0) L 10/30/20 05:19 RDW 17.6 % (12.0-15.0) H 10/30/20 05:19 Plt Count 416 10^3/uL (130-450) 10/30/20 05:19 MPV 11.6 fL (7.4-11.4) H 10/30/20 05:19 Neut # (Auto) Not Reportable 10/30/20 05:19 Lymph # (Auto) Not Reportable 10/30/20 05:19 Moore # (Auto) Not Reportable 10/30/20 05:19 Eos # (Auto) Not Reportable 10/30/20 05:19 Baso # (Auto) Not Reportable 10/30/20 05:19 Absolute Nucleated RBC Not Reportable 10/30/20 05:19 Total Counted 100 10/30/20 05:19 Band Neuts % (Manual) 16 % (0-10) H 10/30/20 05:19 Abnorm Lymph % (Manual) 0 % 10/30/20 05:19 Nucleated RBC % Not Reportable 10/30/20 05:19 Neutrophils # (Manual) 28.4 10^3/uL (1.5-6.6) H 10/30/20 05:19 Lymphocytes # (Manual) 1.5 10^3/uL (1.5-3.5) 10/30/20 05:19 Monocytes # (Manual) 0.3 10^3/uL (0.0-1.0) 10/30/20 05:19 Eosinophils # (Manual) 0.0 10^3/uL (0-0.7) 10/30/20 05:19 Basophils # (Manual) 0.0 10^3/uL (0-0.1) 10/30/20 05:19 Differential Comment MANUAL DIFFERENTIAL 10/30/20 05:19 Platelet Estimate NORMAL (130-450,000) (NORMAL) 10/30/20 05:19 RBC Morph Micro Appear NORMAL APPEARANCE (NORMAL) 10/30/20 05:19 Sodium 139 mmol/L (135-145) 10/30/20 05:19 Potassium 5.5 mmol/L (3.5-5.0) H 10/30/20 05:19 Chloride 100 mmol/L (101-111) L 10/30/20 05:19 Carbon Dioxide 28 mmol/L (21-32) 10/30/20 05:19 Anion Gap 11.0 (6-13) 10/30/20 05:19 BUN 19 mg/dL (6-20) 10/30/20 05:19 Creatinine 0.6 mg/dL (0.6-1.2) 10/30/20 05:19 Estimated GFR (MDRD) 129 (>89) 10/30/20 05:19 Glucose 143 mg/dL (70-100) H 10/30/20 05:19 Calcium 8.4 mg/dL (8.5-10.3) L 10/30/20 05:19 Total Bilirubin 0.4 mg/dL (0.2-1.0) 10/29/20 18:10 AST 17 IU/L (10-42) 10/29/20 18:10 ALT 14 IU/L (10-60) 10/29/20 18:10 Alkaline Phosphatase 54 IU/L (42-121) 10/29/20 18:10 Troponin I High Sens 302.1 ng/L (2.3-19.7) H* 10/30/20 05:19 Total Protein 7.1 g/dL (6.7-8.2) 10/29/20 18:10 Albumin 3.5 g/dL (3.2-5.5) 10/29/20 18:10 Globulin 3.6 g/dL (2.1-4.2) 10/29/20 18:10 Albumin/Globulin Ratio 1.0 (1.0-2.2) 10/29/20 18:10 Lipase 27 U/L (22-51) 10/29/20 18:10 Nasal Adenovirus (PCR) NOT DETECTED 10/29/20 21:23 Nasal B. parapertussis DNA (PCR) NOT DETECTED 10/29/20 21:23 Nasal Coronavir 229E PCR NOT DETECTED 10/29/20 21:23 Nasal Coronavir HKU1 PCR NOT DETECTED 10/29/20 21:23 Nasal Coronavir NL63 PCR NOT DETECTED 10/29/20 21:23 Nasal Coronavir OC43 PCR NOT DETECTED 10/29/20 21:23 Nasal Enterovir/Rhinovir PCR NOT DETECTED 10/29/20 21:23 Nasal Influenza B PCR NOT DETECTED 10/29/20 21:23 Nasal Influenza A PCR NOT DETECTED 10/29/20 21:23 Nasal Parainfluen 1 PCR NOT DETECTED 10/29/20 21:23 Nasal Parainfluen 2 PCR NOT DETECTED 10/29/20 21:23 Nasal Parainfluen 3 PCR NOT DETECTED 10/29/20 21:23 Nasal Parainfluen 4 PCR NOT DETECTED 10/29/20 21:23 Nasal RSV (PCR) NOT DETECTED 10/29/20 21:23 Nasal Screen MRSA (PCR) NEGATIVE (NEGATIVE) 10/29/20 23:00 Nasal B.pertussis DNA PCR NOT DETECTED 10/29/20 21:23 Nasal C.pneumoniae (PCR) NOT DETECTED 10/29/20 21:23 Vadim Human Metapneumo PCR NOT DETECTED 10/29/20 21:23 Nasal M.pneumoniae (PCR) NOT DETECTED 10/29/20 21:23 Nasal SARS-CoV-2 (PCR) NOT DETECTED 10/29/20 21:23
[2020-10-30 13:13] LABS: BILIRUBIN,URINE NEGATIVE (NEGATIVE); GLUCOSE, URINE (UA) NEGATIVE (NEGATIVE); KETONES,URINE (UA) TRACE mg/dL (NEGATIVE); LEUKOCYTE ESTERASE, URINE NEGATIVE (NEGATIVE); NITRITE,URINE NEGATIVE (NEGATIVE); OCCULT BLOOD,URINE MODERATE (NEGATIVE); PH,URINE 5.5 PH (5.0-7.5); PROTEIN,URINE NEGATIVE (NEGATIVE); UROBILINOGEN,URINE 0.2 (NORMAL) E.U./dL (NORMAL)
[2020-10-30 13:15] LABS: CLARITY,URINE CLEAR (CLEAR)
[2020-10-30 13:21] LABS: BACTERIA,URINE Few /HPF (None Seen); SQUAMOUS EPITHELIAL CELL,UR NONE SEEN (<= Few); WBC,URINE 0-3 /HPF (0-3)
[2020-10-30] MEDS: SODIUM CHLORIDE FLUSH 0.9% 10 ML SYRINGE IVP PRN ×3 (14:04→21:33)
--- NOTE | 2020-10-30 16:15 | CONSULTATION NOTE ---
Referring Provider Name of Referring Provider:: Dr. Woodard, hospitalist Consult Date: 10/30/20 Chief Complaint - Chief Complaint Chief Complaint: pain right hip following fall History of Present Illness - History Obtained From Records Reviewed: yes History obtained from: family Exam Limitations: patient is obtunded - History of Present Illness HPI Comment/Other: This is a 79-year-old man lives at home but is seen frequently by his daughter. He took a unwitnessed fall yesterday evening, apparently trying to eat or cook some food. He was found on the floor, unable to ambulate and brought to the emergency room for further evaluation. He is a minimal ambulator, most the time just sits and ambulates either the bathroom or to the table. He has severe chronic obstructive pulmonary disease. He smoked for many years according to his daughter. His general health has declined. He was admitted by her hospitalist service and multiple medical problems have been noted, most of which appear to be end-stage and now going on hospice or the consideration of such. History - Past Medical History Cardiovascular: reports: None Respiratory: reports: COPD Neuro: reports: None Endocrine/Autoimmune: reports: None MRSA Hx?: No - Past Surgical History General: reports: Other (x ap for adhesions) - Family & Social History Family History Comment/Other: His daughter who helped provide the history denies any significant family history Living arrangement: At home Living Situation: Alone Social History Notes: The patient lives at home alone. His daughter brings him food 2-3 times a week. A home service by name [id number] comes twice a week and helps him with shaving, bathing and cutting his hair. The patient has smoked for over 70 years and for a long time smoked 3 packs/day. He quit smoking in April 2020. He quit drinking alcohol 27 years ago and does not use any illicit drugs. - POLST Patient has POLST: No POLST Status: DNR Meds/Allgy - Home Medications Home Medications: Ambulatory Orders Medication Instructions Recorded Confirmed Albuterol 1 puffs INH DAILY 12/13/19 10/29/20 Ipratropium [Atrovent] 0.5 mg INH TID #30 neb 12/13/19 10/29/20 - Allergies Allergies/Adverse Reactions: Allergies Allergy/AdvReac Type Severity Reaction Status Date / Time No Known Drug Allergies Allergy Verified 10/29/20 17:56 Exam - Vital Signs Vital Signs: Vital Signs x48h Temp Pulse Resp BP BP Pulse Ox 10/30/20 15:00 82 24 108/70 99 10/30/20 14:00 81 23 106/70 99 10/30/20 13:00 36.9 C 81 14 107/69 100 10/30/20 12:00 36.5 C 81 24 91/71 91/71 100 10/30/20 11:00 82 21 90/64 98 10/30/20 10:00 83 12 90/63 99 10/30/20 09:26 105/68 10/30/20 09:00 87 16 105/68 97 - Physical Exam General Appearance: positive: No acute distress, Other Extremities: negative: Other (Mild sinus pain with movement of right hip, no clinical deformity, no hematoma about hip, unable to assess neurologic status because of mental status, circulation intact right leg) Neurologic/Psychiatric: positive: Other Conclusion and Plan - Lab Results Laboratory Results 10/30/20 11:15: Urine Color DARK YELLOW, Urine Clarity CLEAR, Urine pH 5.5, Ur Specific [place] >=1.030 H, Urine Protein NEGATIVE, Urine Glucose (UA) NEGATIVE, Urine Ketones TRACE, Urine Occult Blood MODERATE H, Urine Nitrite NEGATIVE, Urine Bilirubin NEGATIVE, Urine Urobilinogen 0.2 (NORMAL), Ur Leukocyte Esterase NEGATIVE, Urine RBC 6-10 H, Urine WBC 0-3, Ur Squamous Epith Cells NONE SEEN, Urine Bacteria Few, Urine Culture Comments NOT INDICATED 10/30/20 05:19: Troponin I High Sens 302.1 H* 10/30/20 05:19: Sodium 139, Potassium 5.5 H, Chloride 100 L, Carbon Dioxide 28, Anion Gap 11.0, BUN 19, Creatinine 0.6, Estimated GFR (MDRD) 129, Glucose 143 H, Calcium 8.4 L 10/30/20 05:19: WBC 30.2 H, RBC 3.70 L, Hgb 9.4 L, Hct 31.1 L, MCV 84.1, MCH 25.4 L, MCHC 30.2 L, RDW 17.6 H, Plt Count 416, MPV 11.6 H, Neut # (Auto) Not Reportable, Lymph # (Auto) Not Reportable, Bertie # (Auto) Not Reportable, Eos # (Auto) Not Reportable, Baso # (Auto) Not Reportable, Absolute Nucleated RBC Not Reportable, Total Counted 100, Band Neuts % (Manual) 16 H, Abnorm Lymph % (Manual) 0, Nucleated RBC % Not Reportable, Neutrophils # (Manual) 28.4 H, Lymphocytes # (Manual) 1.5, Monocytes # (Manual) 0.3, Eosinophils # (Manual) 0.0, Basophils # (Manual) 0.0, Differential Comment MANUAL DIFFERENTIAL, Platelet Estimate NORMAL (130-450,000), RBC Morph Micro Appear NORMAL APPEARANCE 10/30/20 00:10: Troponin I High Sens 174.2 H* 10/29/20 23:00: Nasal Screen MRSA (PCR) NEGATIVE 10/29/20 21:23: Nasal Adenovirus (PCR) NOT DETECTED, Nasal B. parapertussis DNA (PCR) NOT DETECTED, Nasal Coronavir 229E PCR NOT DETECTED, Nasal Coronavir HKU1 PCR NOT DETECTED, Nasal Coronavir NL63 PCR NOT DETECTED, Nasal Coronavir OC43 PCR NOT DETECTED, Nasal Enterovir/Rhinovir PCR NOT DETECTED, Nasal Influenza B PCR NOT DETECTED, Nasal Influenza A PCR NOT DETECTED, Nasal Parainfluen 1 PCR NOT DETECTED, Nasal Parainfluen 2 PCR NOT DETECTED, Nasal Parainfluen 3 PCR NOT DETECTED, Nasal Parainfluen 4 PCR NOT DETECTED, Nasal RSV (PCR) NOT DETECTED, Nasal B.pertussis DNA PCR NOT DETECTED, Nasal C.pneumoniae (PCR) NOT DETECTED, Vadim Human Metapneumo PCR NOT DETECTED, Nasal M.pneumoniae (PCR) NOT DETECTED, Nasal SARS-CoV-2 (PCR) NOT DETECTED 10/29/20 18:10: Troponin I High Sens 21.9 H* 10/29/20 18:10: Sodium 139, Potassium 4.6, Chloride 97 L, Carbon Dioxide 33 H, Anion Gap 9.0, BUN 16, Creatinine 0.6, Estimated GFR (MDRD) 129, Glucose 173 H, Calcium 8.8, Total Bilirubin 0.4, AST 17, ALT 14, Alkaline Phosphatase 54, Total Protein 7.1, Albumin 3.5, Globulin 3.6, Albumin/Globulin Ratio 1.0, Lipase 27 10/29/20 18:10: WBC 14.1 H, RBC 3.94 L, Hgb 9.9 L, Hct 33.0 L, MCV 83.8, MCH 25.1 L, MCHC 30.0 L, RDW 17.2 H, Plt Count 475 H, MPV 10.7, Neut # (Auto) 11.8 H, Lymph # (Auto) 1.3 L, Bertie # (Auto) 0.7, Eos # (Auto) 0.3, Baso # (Auto) 0.0, Absolute Nucleated RBC 0.00, Nucleated RBC % 0.0 - Diagnostic Imaging Results Diagnostic Imaging Results: negative: Read independently (Minimally displaced femoral neck fracture right hip) - Diagnosis Diagnosis: Minimally displaced femoral neck fracture right hip - Plan Plan: This is a patient with serious and multiple medical comorbidities. His fracture can be safely treated nonoperatively. I would not recommend surgical treatment because of the underlying medical comorbidities which present high risk for surgery. In addition, he is likely to be going into hospice program. He still can receive physical therapy, use of walker and weightbearing as tolerated on the right leg if appropriate, otherwise bed to chair activity. I have discussed this with his daughter who is in complete agreement with nonoperative treatment of his right hip fracture
[2020-10-30] MEDS ORDERED: LEVALBUTEROL 1.25 MG/3 ML NEB INH PRN (19:03)
--- NOTE | 2020-10-30 20:32 | XRAY Report ---
PROCEDURE: Chest 1 View X-Ray INDICATIONS: Desaturation, Suspect CHF TECHNIQUE: One view of the chest was acquired. COMPARISON: 10/29/2020. FINDINGS: Surgical changes and devices: None. Lungs and pleura: No pleural effusions or pneumothorax. Scattered bilateral ill-defined and patchy opacities probably atelectasis/scarring. No definite new focal consolidation. Mediastinum: Mediastinal contours appear normal. Heart size is normal. Bones and chest wall: No suspicious bony lesions. Overlying soft tissues appear unremarkable. IMPRESSION: Presumed scattered patchy subsegmental scarring/atelectasis. No acute consolidation. If there is pers istent clinical diagnostic uncertainty, recommend short interval radiographic follow-up after treatme nt for further assessment. Reviewed by: Fahad Manriquez MD on 10/30/2020 8:31 PM PDT Approved by: Fahad Manriquez MD on 10/30/2020 8:31 PM PDT Station ID: [id number]
[2020-10-30] MEDS ORDERED: FUROSEMIDE 20 MG/2 ML VIAL IVP STA (21:09)
[2020-10-31] MEDS: SODIUM CHLORIDE FLUSH 0.9% 10 ML SYRINGE IVP PRN ×3 (01:32→12:31)
[2020-10-31] MEDS: MORPHINE 2 MG/ML CARPUJECT IVP PRN ×2 (01:32→16:49)
[2020-10-31 05:12] LABS: BASOPHILS % (AUTO) 0.1 %; HCT - HEMATOCRIT 27.8 % (42.0-52.0); HGB - HEMOGLOBIN 8.8 g/dL (14.0-18.0); LYMPHOCYTES # (AUTO) 0.7 10^3/uL (1.5-3.5); LYMPHOCYTES % (AUTO) 4.8 %; MEAN CORPUSCULAR HEMOGLOBIN 25.4 pg (27.0-31.0); MEAN CORPUSCULAR HGB CONC 31.7 g/dL (32.0-36.0); MEAN CORPUSCULAR VOLUME 80.1 fL (80.0-94.0); MEAN PLATELET VOLUME 11.9 fL (7.4-11.4); MONOCYTES # (AUTO) 0.5 10^3/uL (0.0-1.0); MONOCYTES % (AUTO) 3.8 %; NEUTROPHILS % (AUTO) 90.7 %; PLT - PLATELET COUNT 398 10^3/uL (130-450); RED BLOOD COUNT 3.47 10^6/uL (4.70-6.10); RED CELL DISTRIBUTION WIDTH 17.4 % (12.0-15.0); WHITE BLOOD COUNT 14.3 x10^3/uL (4.8-10.8)
[2020-10-31 05:28] LABS: CALCIUM 8.7 mg/dL (8.5-10.3); CREATININE 0.7 mg/dL (0.6-1.2); MAGNESIUM 1.9 mg/dL (1.7-2.8); POTASSIUM 4.2 mmol/L (3.5-5.0)
[2020-10-31] MEDS: methylPREDNISolone SUCCINATE 40 MG/ML VIAL IVP SCH ×3 (05:58→21:43)
[2020-10-31] MEDS: SODIUM CHLORIDE FLUSH 0.9% 10 ML SYRINGE IVP SCH ×3 (05:58→18:50)
[2020-10-31] MEDS: BUDESONIDE 0.5 MG/2 ML NEB INH SCH (06:53)
[2020-10-31] MEDS: FORMOTEROL FUMARATE NEB 20 MCG/2 ML INH SCH (06:53)
[2020-10-31] MEDS ORDERED: MORPHINE 2 MG/ML CARPUJECT IVP PRN (07:36)
[2020-10-31 08:02] LABS: % IRON SATURATION 12 % (20-50); IRON 32 ug/dL (45-182); TOTAL IRON BINDING CAPACITY 276 ug/dL (250-450); TRANSFERRIN 197 mg/dL (180-329)
[2020-10-31 08:23] LABS: FOLATE 5.21 ng/mL (5.90 - >24.8)
--- NOTE | 2020-10-31 10:59 | PROVIDER PROGRESS NOTE ---
Assessment/Plan - Problem List (1) Acute respiratory failure with hypoxia Assessment/Plan: Last evening he was coughing and resp rate increased, he was Yankauer suctioned and a CXR was done showing poss CHF, a BNP was >1000. he received iv Lasix last night. He is getting nebs and iv steroids for COPD. He still needs supplemental O2. Will continue this management, keeping O2 sats >88%. (2) COPD exacerbation Assessment/Plan: As above. He is not able to follow commands to swallow, cannot be transitioned currently to po meds (Prednisone), or add Motelukast. Will add Xopenex nebs scheduled. (3) NSTEMI (non-ST elevated myocardial infarction) Assessment/Plan: His troponins peaked at 302. When he went into sinus rhythm last night, an EKG was obtained to document NSR, and it also showed new deep anterior T wave inversions. Awaiting Echo to be done today to evaluate LVEF, RV fnc, valves and PA pressure. Only medical management is planned. He is not able to follow commands to swallow, cannot be started currently to po meds, like Lipitor Will start iv Metoprolol. Will consider pr ASA, but rolling him is painful due to hip fracture. (4) CHF (congestive heart failure) Assessment/Plan: Last evening he was coughing and resp rate increased, he was Yankauer suctioned and a CXR was done showing poss CHF, a BNP was >1000. he received iv Lasix last night. He is not able to follow commands to swallow, cannot be started currently on po meds (Spironolactone, po Lasix or Toprol). Will start scheduled iv Lasix daily and scheduled iv Metoprolol q8h. (5) Atrial fibrillation with rapid ventricular response Assessment/Plan: His rapid rate was controlled with IV diltiazem yesterday and he converted to normal sinus rhythm in the late afternoon/early evening yesterday. An EKG was obtained and confirmed NSR. He did not get p.o. Cardizem (was too somnolent to swallow) and the iv Dilt was weaned to off. He is not able to follow commands to swallow, cannot be started currently to po meds (Metoprolol or ASA or anticoag). Will start scheduled iv Metoprolol. Will consider pr ASA, but rolling him is painful due to hip fracture. (6) Fracture of femoral neck, left Qualifiers: Encounter type: subsequent encounter Fracture type: closed Assessment/Plan: He received IV morphine at a lower and more spread out dose today to prevent somnolence, in preparation for rolling him, expecting pain at the hip fracture site. He is not a candidate for surgery because of excessive mortality risk. Currently he needs bedrest but the orthopedic note states that he will eventually be able to ambulate. Appreciate Orthopedic input in their consultation. (7) Anemia Assessment/Plan: This patient started to get IV fluids at presentation because of the A. fib with RVR. Fluids were stopped when he had CHF last night. He got IV Lasix x1 then. Part of the hemoglobin of 8.8 is dilutional therefore. Serum levels show that he is deficient in B12, and folate, and iron. This was somewhat expected because of his severe protein-calorie malnutrition. Depending on his acceptance into Hospice, will possibly not replace these by IV and he cannot yet take p.o. meds because of somnolence/does not follow commands adequately. 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 intake of food and liquids for very long time, because it was "too difficult to eat because of constant shortness of breath". (9) Severe protein-calorie malnutrition Assessment/Plan: As above. He has such weakness from his COPD and cachexia that it is doubtful he will survive this hospitalization with multiple comorbidities. I requested Hospice consult, and spoke to Dr Beasley today. (10) Somnolence Assessment/Plan: He got 1 dose of morphine 2 mg IV yesterday morning and he slept approximately 12 hours after that. He is not able to follow commands to swallow, cannot be started on po meds. Will adjust the dose of IV morphine because of his cachexia and spread out the interval. (11) Elevated WBC count Assessment/Plan: Resolved, without any empiric antibiotics. There is no source of an infection currently seen. Likely the etiology was demargination due to extreme stress from his fracture, acute RI and COPD exacerbation - Current Meds Current Meds: Current Medications Generic Name Dose Route Start Last Admin Trade Name Freq PRN Reason Stop Dose Admin Albuterol/Ipratropium 3 ml 10/29/20 21:50 10/30/20 20:17 Ipratropium/Albuterol 3 Ml Neb INH 3 ml Q4HR PRN Administration Wheezing Budesonide 0.5 mg 10/30/20 07:00 10/31/20 06:53 Budesonide 0.5 Mg/2 Ml Neb INH 0.5 mg RTBID MO Administration Formoterol Fumarate 20 mcg 10/30/20 07:00 10/31/20 06:53 Formoterol Fumarate Neb 20 Mcg/2 Ml INH 20 mcg RTBID MO Administration Methylprednisolone 80 mg 10/29/20 22:00 10/31/20 05:58 Methylprednisolone Succinate 40 Mg/Ml Vial IVP 80 mg TID MO Administration Sodium Chloride 10 ml 10/30/20 01:00 10/31/20 09:22 Sodium Chloride Flush 0.9% 10 Ml Syringe IVP 10 ml 0100,0900,1700 MO Administration Sodium Chloride 10 ml 10/29/20 21:40 10/31/20 10:18 Sodium Chloride Flush 0.9% 10 Ml Syringe IVP 10 ml PRN PRN Administration NEEDED PER PROVIDER ORDERS - Lab Result Fish Bone Diagrams: 10/31/20 04:21 10/31/20 04:21 - Additional Planning My Orders: My Active Orders 10/30/20 10:54 Miscellaenous Nursing Order [RC] ONCE 10/30/20 Lunch DIET [Dysphagia Puree Diet] [DIET] 10/30/20 19:03 Resp Teach Nebulizer/MDI [RC] .ONCE 10/31/20 Hospice Elevated Work Platform Operator Consult [CONS] Routine 10/31/20 08:00 Echo Transthoracic Complete [ECHO] Routine 10/31/20 10:54 Transfer [Admit \\ Transfer \\ Status] [RC] .ONCE 10/31/20 10:54 Morphine Inj (Carpuject) [Morphine (Carpuject)] 1 mg IVP Q4HR PRN 10/31/20 10:55 Telemetry- [RC] Q4HR 10/31/20 11:00 D5.45ns W/20 Meq KCl 1,000 ml IV tko 10/31/20 13:00 Levalbuterol [Xopenex] 1.25 mg INH QID 10/31/20 14:00 Metoprolol Inj [Lopressor Inj] 2.5 mg IVP Q8HR 11/01/20 09:00 FUROSEMIDE INJ 20mg VIAL [LASIX INJ 20mg VIAL] 10 mg IVP DAILY Subjective - Subjective Patient Reports: Resting Comfortably, Other (Eyes partially open, does not respond to name or to touch (just got Morphine iv)) Nursing Reports: Other (Cannot follow commands, unable to swallow safely) Objective Vital Signs: Vital Signs - 24 hr 10/30/20 10/30/20 10/30/20 11:00 12:00 13:00 Temperature 36.5 C 36.9 C Heart Rate Heart Rate [ 82 81 81 Apical] Respiratory 21 24 14 Rate Blood Pressure 91/71 Blood Pressure 90/64 91/71 107/69 [Right Brachial artery] O2 Saturation 98 100 100 10/30/20 10/30/20 10/30/20 14:00 15:00 16:00 Temperature 36.4 C L Heart Rate Heart Rate [ 81 82 78 Apical] Respiratory 23 24 24 Rate Blood Pressure Blood Pressure 106/70 108/70 128/81 H [Right Brachial artery] O2 Saturation 99 99 3 L 10/30/20 10/30/20 10/30/20 17:00 17:35 17:50 Temperature Heart Rate Heart Rate [ 72 82 72 Apical] Respiratory 15 24 16 Rate Blood Pressure Blood Pressure 98/69 114/75 125/72 [Right Brachial artery] O2 Saturation 100 100 99 10/30/20 10/30/20 10/30/20 18:00 18:15 19:00 Temperature Heart Rate Heart Rate [ 73 78 74 Apical] Respiratory 21 14 17 Rate Blood Pressure Blood Pressure 112/71 118/73 126/77 [Right Brachial artery] O2 Saturation 100 99 99 10/30/20 10/30/20 10/30/20 20:00 20:18 21:00 Temperature 36.5 C Heart Rate 79 Heart Rate [ 74 76 Apical] Respiratory 19 22 17 Rate Blood Pressure Blood Pressure 122/77 130/71 [Right Brachial artery] O2 Saturation 97 96 10/31/20 10/31/20 10/31/20 00:00 04:11 06:55 Temperature 36.5 C 36.5 C Heart Rate 70 Heart Rate [ 81 67 Apical] Respiratory 25 H 13 15 Rate Blood Pressure Blood Pressure 143/83 H 125/87 H [Right Brachial artery] O2 Saturation 100 100 10/31/20 10/31/20 07:49 10:20 Temperature 36.6 C 37.1 C Heart Rate Heart Rate [ 89 90 Apical] Respiratory 28 H 30 H Rate Blood Pressure Blood Pressure 151/82 H 167/87 H [Right Brachial artery] O2 Saturation 88 L 95 Oxygen O2 Source Nasal cannula Oxygen Flow Rate 3 I&O (Last 24 Hrs): Intake and Output Totals x24h 10/29/20 10/30/20 10/31/20 23:59 23:59 23:59 Intake Total 8994.792 6148.959 Output Total 988 0 Balance 4813.553 7365.959 -2080 General: No acute distress, Other (Lethargic) HEENT: Other (Dry mucosa, temporal wasting, sunken eyes) Neck: Other (Positive JVP, cricoid and all head and neck bones are protruberant and easily visible) Neuro: Other (Lethargic, eyes are open but he does not respond to name or to touch, he does squeeze right hand but not left, when commanded to do so) Cardiovascular: Regular rate, Other (1-2/6 syst murmur, PMI is vertically displaced) Respiratory: Breath sounds nml (Respiratory rate is slightly elevated. No wheezes.) Abdomen: Normal bowel sounds, Soft Genitourinary: Other (Berry in place) Extremities: No clubbing, No edema, Other (Emaciated muscles of all extremities) - Results Results: Laboratory Results WBC 14.3 x10^3/uL (4.8-10.8) H 10/31/20 04:21 RBC 3.47 10^6/uL (4.70-6.10) L 10/31/20 04:21 Hgb 8.8 g/dL (14.0-18.0) L 10/31/20 04:21 Hct 27.8 % (42.0-52.0) L 10/31/20 04:21 MCV 80.1 fL (80.0-94.0) 10/31/20 04:21 MCH 25.4 pg (27.0-31.0) L 10/31/20 04:21 MCHC 31.7 g/dL (32.0-36.0) L 10/31/20 04:21 RDW 17.4 % (12.0-15.0) H 10/31/20 04:21 Plt Count 398 10^3/uL (130-450) 10/31/20 04:21 MPV 11.9 fL (7.4-11.4) H 10/31/20 04:21 Neut # (Auto) 13.0 10^3/uL (1.5-6.6) H 10/31/20 04:21 Lymph # (Auto) 0.7 10^3/uL (1.5-3.5) L 10/31/20 04:21 [place] # (Auto) 0.5 10^3/uL (0.0-1.0) 10/31/20 04:21 Eos # (Auto) 0.0 10^3/uL (0.0-0.7) 10/31/20 04:21 Baso # (Auto) 0.0 10^3/uL (0.0-0.1) 10/31/20 04:21 Absolute Nucleated RBC 0.00 x10^3/uL 10/31/20 04:21 Total Counted 100 10/30/20 05:19 Band Neuts % (Manual) 16 % (0-10) H 10/30/20 05:19 Abnorm Lymph % (Manual) 0 % 10/30/20 05:19 Nucleated RBC % 0.0 /100WBC 10/31/20 04:21 Neutrophils # (Manual) 28.4 10^3/uL (1.5-6.6) H 10/30/20 05:19 Lymphocytes # (Manual) 1.5 10^3/uL (1.5-3.5) 10/30/20 05:19 Monocytes # (Manual) 0.3 10^3/uL (0.0-1.0) 10/30/20 05:19 Eosinophils # (Manual) 0.0 10^3/uL (0-0.7) 10/30/20 05:19 Basophils # (Manual) 0.0 10^3/uL (0-0.1) 10/30/20 05:19 Differential Comment MANUAL DIFFERENTIAL 10/30/20 05:19 Platelet Estimate NORMAL (130-450,000) (NORMAL) 10/30/20 05:19 RBC Morph Micro Appear NORMAL APPEARANCE (NORMAL) 10/30/20 05:19 Sodium 141 mmol/L (135-145) 10/31/20 04:21 Potassium 4.2 mmol/L (3.5-5.0) 10/31/20 04:21 Chloride 100 mmol/L (101-111) L 10/31/20 04:21 Carbon Dioxide 32 mmol/L (21-32) 10/31/20 04:21 Anion Gap 9.0 (6-13) 10/31/20 04:21 BUN 28 mg/dL (6-20) H 10/31/20 04:21 Creatinine 0.7 mg/dL (0.6-1.2) 10/31/20 04:21 Estimated GFR (MDRD) 108 (>89) 10/31/20 04:21 Glucose 115 mg/dL (70-100) H 10/31/20 04:21 Calcium 8.7 mg/dL (8.5-10.3) 10/31/20 04:21 Magnesium 1.9 mg/dL (1.7-2.8) 10/31/20 04:21 Iron 32 ug/dL (45-182) L 10/31/20 04:21 TIBC 276 ug/dL (250-450) 10/31/20 04:21 % Saturation 12 % (20-50) L 10/31/20 04:21 Transferrin 197 mg/dL (180-329) 10/31/20 04:21 Total Bilirubin 0.4 mg/dL (0.2-1.0) 10/29/20 18:10 AST 17 IU/L (10-42) 10/29/20 18:10 ALT 14 IU/L (10-60) 10/29/20 18:10 Alkaline Phosphatase 54 IU/L (42-121) 10/29/20 18:10 Troponin I High Sens 249.2 ng/L (2.3-19.7) H* 10/30/20 17:45 B-Natriuretic Peptide 933 pg/mL (5-100) H 10/31/20 04:21 Total Protein 7.1 g/dL (6.7-8.2) 10/29/20 18:10 Albumin 3.5 g/dL (3.2-5.5) 10/29/20 18:10 Globulin 3.6 g/dL (2.1-4.2) 10/29/20 18:10 Albumin/Globulin Ratio 1.0 (1.0-2.2) 10/29/20 18:10 Lipase 27 U/L (22-51) 10/29/20 18:10 Vitamin B12 174 pg/mL (180-914) L 10/31/20 04:21 Folate 5.21 ng/mL (5.90 - >24.8) L 10/31/20 04:21 Urine Color DARK YELLOW 10/30/20 11:15 Urine Clarity CLEAR (CLEAR) 10/30/20 11:15 Urine pH 5.5 PH (5.0-7.5) 10/30/20 11:15 Ur Specific [place] >=1.030 (1.002-1.030) H 10/30/20 11:15 Urine Protein NEGATIVE mg/dL (NEGATIVE) 10/30/20 11:15 Urine Glucose (UA) NEGATIVE mg/dL (NEGATIVE) 10/30/20 11:15 Urine Ketones TRACE mg/dL (NEGATIVE) 10/30/20 11:15 Urine Occult Blood MODERATE (NEGATIVE) H 10/30/20 11:15 Urine Nitrite NEGATIVE (NEGATIVE) 10/30/20 11:15 Urine Bilirubin NEGATIVE (NEGATIVE) 10/30/20 11:15 Urine Urobilinogen 0.2 (NORMAL) E.U./dL (NORMAL) 10/30/20 11:15 Ur Leukocyte Esterase NEGATIVE (NEGATIVE) 10/30/20 11:15 Urine RBC 6-10 /HPF (0-5) H 10/30/20 11:15 Urine WBC 0-3 /HPF (0-3) 10/30/20 11:15 Ur Squamous Epith Cells NONE SEEN (<= Few) 10/30/20 11:15 Urine Bacteria Few /HPF (None Seen) 10/30/20 11:15 Urine Culture Comments NOT INDICATED 10/30/20 11:15 Nasal Adenovirus (PCR) NOT DETECTED 10/29/20 21:23 Nasal B. parapertussis DNA (PCR) NOT DETECTED 10/29/20 21:23 Nasal Coronavir 229E PCR NOT DETECTED 10/29/20 21:23 Nasal Coronavir HKU1 PCR NOT DETECTED 10/29/20 21:23 Nasal Coronavir NL63 PCR NOT DETECTED 10/29/20 21:23 Nasal Coronavir OC43 PCR NOT DETECTED 10/29/20 21:23 Nasal Enterovir/Rhinovir PCR NOT DETECTED 10/29/20 21:23 Nasal Influenza B PCR NOT DETECTED 10/29/20 21:23 Nasal Influenza A PCR NOT DETECTED 10/29/20 21:23 Nasal Parainfluen 1 PCR NOT DETECTED 10/29/20 21:23 Nasal Parainfluen 2 PCR NOT DETECTED 10/29/20 21:23 Nasal Parainfluen 3 PCR NOT DETECTED 10/29/20 21:23 Nasal Parainfluen 4 PCR NOT DETECTED 10/29/20 21:23 Nasal RSV (PCR) NOT DETECTED 10/29/20 21:23 Nasal Screen MRSA (PCR) NEGATIVE (NEGATIVE) 10/29/20 23:00 Nasal B.pertussis DNA PCR NOT DETECTED 10/29/20 21:23 Nasal C.pneumoniae (PCR) NOT DETECTED 10/29/20 21:23 Vadim Human Metapneumo PCR NOT DETECTED 10/29/20 21:23 Nasal M.pneumoniae (PCR) NOT DETECTED 10/29/20 21:23 Nasal SARS-CoV-2 (PCR) NOT DETECTED 10/29/20 21:23
[2020-10-31] MEDS ORDERED: D5.45NS W/20 MEQ KCL 1,000 ML IV SCH (11:00)
[2020-10-31] MEDS: LEVALBUTEROL 1.25 MG/3 ML NEB INH SCH ×3 (13:00→21:15)
[2020-10-31] MEDS: METOPROLOL 5 MG/5 ML VIAL IVP SCH ×2 (14:41→21:42)
[2020-11-01] MEDS: SODIUM CHLORIDE FLUSH 0.9% 10 ML SYRINGE IVP SCH ×3 (02:25→17:15)
[2020-11-01] MEDS: MORPHINE 2 MG/ML CARPUJECT IVP PRN ×3 (02:38→18:31)
[2020-11-01 05:41] LABS: BASOPHILS % (AUTO) 0.1 %; HGB - HEMOGLOBIN 9.9 g/dL (14.0-18.0); LYMPHOCYTES # (AUTO) 0.7 10^3/uL (1.5-3.5); LYMPHOCYTES % (AUTO) 5.2 %; MEAN CORPUSCULAR HEMOGLOBIN 25.1 pg (27.0-31.0); MEAN CORPUSCULAR HGB CONC 31.9 g/dL (32.0-36.0); MEAN CORPUSCULAR VOLUME 78.7 fL (80.0-94.0); MEAN PLATELET VOLUME 11.7 fL (7.4-11.4); MONOCYTES # (AUTO) 0.7 10^3/uL (0.0-1.0); NEUTROPHILS # (AUTO) 12.6 10^3/uL (1.5-6.6); NEUTROPHILS % (AUTO) 89.1 %; PLT - PLATELET COUNT 450 10^3/uL (130-450); RED BLOOD COUNT 3.94 10^6/uL (4.70-6.10); RED CELL DISTRIBUTION WIDTH 17.2 % (12.0-15.0); WHITE BLOOD COUNT 14.1 x10^3/uL (4.8-10.8)
[2020-11-01 05:43] LABS: CALCIUM 8.7 mg/dL (8.5-10.3); CREATININE 0.6 mg/dL (0.6-1.2); POTASSIUM 3.8 mmol/L (3.5-5.0)
[2020-11-01] MEDS: methylPREDNISolone SUCCINATE 40 MG/ML VIAL IVP SCH ×3 (05:58→21:22)
[2020-11-01] MEDS: METOPROLOL 5 MG/5 ML VIAL IVP SCH ×2 (05:59→14:41)
[2020-11-01] MEDS: SODIUM CHLORIDE FLUSH 0.9% 10 ML SYRINGE IVP PRN ×2 (06:05→14:38)
--- NOTE | 2020-11-01 08:54 | PROVIDER PROGRESS NOTE ---
Assessment/Plan - Problem List (1) Acute respiratory failure with hypoxia Assessment/Plan: Overall his respiratory status has stabilized on supplemental oxygen, occasional morphine IV, COPD treatment and CHF management. 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 Appreciate hospice consult that was done last evening. Dr. Beasley recommends continuing IV steroids and simplifying nebs to just DuoNebs. We will continue with Xopenex since it will not add to his higher heart rate as well. (3) NSTEMI (non-ST elevated myocardial infarction) Assessment/Plan: LVEF by echo was 45%. We will continue with IV beta-ilir treatment to avoid any further A. fib with RVR and treat this NM. He is not a candidate for cardiac PT. (4) CHF (congestive heart failure) Assessment/Plan: LVEF was 45% by echo. Continue with IV beta-ilir treatment and rate control. Aspirin per rectum would be the only way to administer it and that would be too painful with rolling him because of the hip fracture. He received several days of Lasix. He is taking nothing p.o. therefore the Lasix will be stopped. He is iv hydration at TKO (5) Fracture of femoral neck, left Qualifiers: Encounter type: subsequent encounter Fracture type: closed Assessment/Plan: He is not a candidate for surgery due to high mortality risk and this type of hip fracture can be managed without surgery, poor orthopedic consult Tinea with morphine for pain (6) Anemia Assessment/Plan: He has B12, folate deficiency and iron deficiency. Replacement was held off because waiting for hospice to see if they would accept him and they will therefore will transition to comfort care, not treat the deficiencies (7) Pulmonary cachexia due to COPD Assessment/Plan: He was in too much respiratory distress to eat. He is a Hospice candidate. He could be accepted by hospice this upcoming week. Social Work to arrange for placement. (8) Severe protein-calorie malnutrition Assessment/Plan: Cachexia, as per history. Will transition to comfort care, stop bringing up a dietary tray with meals, allow comfort eating (9) Somnolence Assessment/Plan: This was from getting morphine when he was in respiratory distress. Now he is overall just weak and resting but able to whisper some answers and follow some commands. He has not eaten or drank anything this entire admission (10) Elevated WBC count Assessment/Plan: Resolved (11) Atrial fibrillation with rapid ventricular response Assessment/Plan: Resolved. He is in NSR. He is not a candidate for anticoagulation nor aspirin as described above. Plan is to go to comfort care then hospice - Current Meds Current Meds: Current Medications Generic Name Dose Route Start Last Admin Trade Name Freq PRN Reason Stop Dose Admin Albuterol/Ipratropium 3 ml 10/29/20 21:50 10/30/20 20:17 Ipratropium/Albuterol 3 Ml Neb INH 3 ml Q4HR PRN Administration Wheezing Potassium Chloride/Dextrose/Sod Cl 1,000 mls @ 0 mls/hr 10/31/20 11:00 10/31/20 16:41 D5.45ns W/20 Meq Kcl IV 20 mls/hr .Q0M MO Infusion TKO Metoprolol Tartrate 2.5 mg 10/31/20 14:00 11/01/20 05:59 Metoprolol 5 Mg/5 Ml Vial IVP 2.5 mg Q8HR MO Administration Morphine Sulfate 1 mg 10/31/20 10:54 11/01/20 08:36 Morphine 2 Mg/Ml Carpuject IVP 1 mg Q4HR PRN Administration PAIN Sodium Chloride 10 ml 10/30/20 01:00 11/01/20 08:37 Sodium Chloride Flush 0.9% 10 Ml Syringe IVP 10 ml 0100,0900,1700 MO Administration Sodium Chloride 10 ml 10/29/20 21:40 11/01/20 06:05 Sodium Chloride Flush 0.9% 10 Ml Syringe IVP 10 ml PRN PRN Administration NEEDED PER PROVIDER ORDERS - Lab Result Fish Bone Diagrams: 11/01/20 05:12 11/01/20 05:12 - Additional Planning My Orders: My Active Orders 10/31/20 08:00 Echo Transthoracic Complete [ECHO] Routine 10/31/20 10:54 Morphine Inj (Carpuject) [Morphine (Carpuject)] 1 mg IVP Q4HR PRN 10/31/20 10:55 Telemetry- [RC] Q4HR 10/31/20 11:00 D5.45ns W/20 Meq KCl 1,000 ml IV TKO 10/31/20 14:00 Metoprolol Inj [Lopressor Inj] 2.5 mg IVP Q8HR 11/01/20 08:45 Telemetry-Discontinue [RC] .ONCE 11/01/20 08:46 Miscellaenous Nursing Order [RC] QSHIFT DIET [NPO except Meds] [DIET] 11/01/20 08:49 Comfort Care [RC] QSHIFT Cooling Unit [RC] PRN Oral Care - Nursing [RC] BID Turn and Reposition [RC] PRN Warming Unit [RC] PRN Glycopyrrolate [Robinul] 0.2 mg SUBQ Q4H PRN 11/01/20 14:00 Levalbuterol [Xopenex] 1.25 mg INH TID methylPREDNISolone SUCCINATE [SOLU-Medrol (40MG VIAL)] 40 mg IVP TID 11/01/20 21:00 Carboxymethylcellulose 1% Opht [Refresh 1% Ophth Drops] 1 drops EACHEYE QPM Subjective - Subjective Patient Reports: Other (Mostly sleeping or restinfg with eyes open staring at the ceiling) Nursing Reports: Other (Has not taken a bite or a sip since admission) Objective Vital Signs: Vital Signs - 24 hr 10/31/20 10/31/20 10/31/20 10:20 14:41 14:57 Temperature 37.1 C 36 C L Heart Rate [ 90 80 Apical] Heart Rate [ Brachial] Respiratory 30 H 29 H Rate Blood Pressure 162/94 H Blood Pressure 167/87 H 158/87 H [Right Brachial artery] O2 Saturation 95 97 10/31/20 10/31/20 10/31/20 15:06 17:00 20:15 Temperature 36.5 C 36.9 C Heart Rate [ 79 83 78 Apical] Heart Rate [ Brachial] Respiratory 32 H 28 H 28 H Rate Blood Pressure Blood Pressure 168/100 H 174/87 H 167/84 H [Right Brachial artery] O2 Saturation 96 100 100 10/31/20 11/01/20 11/01/20 21:42 00:04 03:06 Temperature 37.8 C Heart Rate [ Apical] Heart Rate [ 94 89 Brachial] Respiratory 17 Rate Blood Pressure 158/92 H Blood Pressure 173/102 H 142/77 H [Right Brachial artery] O2 Saturation 94 11/01/20 11/01/20 11/01/20 04:58 05:59 06:06 Temperature 37.4 C Heart Rate [ Apical] Heart Rate [ 88 Brachial] Respiratory 17 Rate Blood Pressure 160/88 H Blood Pressure 153/95 H [Right Brachial artery] O2 Saturation 91 L 95 11/01/20 08:13 Temperature Heart Rate [ Apical] Heart Rate [ 78 Brachial] Respiratory 17 Rate Blood Pressure Blood Pressure 141/86 H [Right Brachial artery] O2 Saturation 97 Oxygen O2 Source Nasal cannula Oxygen Flow Rate 3 I&O (Last 24 Hrs): Intake and Output Totals x24h 10/30/20 10/31/20 11/01/20 23:59 23:59 23:59 Intake Total 2924.959 84 Output Total 982 3821 625 Balance 1936.959 -8526 -068 General: Other (resting comfortably) HEENT: Other (dry mucosa, sunken eyes, temporal wasting, pale) Neuro: Other (Obtunded, but eyes open, whispers a one-word answer, does not treack, able to squeeze R hand to command) Cardiovascular: Regular rate, Other (2/6 syst murmur at LLSB, PMI is vertically displaced) Respiratory: No respiratory distress (Wearing O2 by n.c.) Abdomen: Soft Extremities: No edema, Other (Muscle wasting, emaciated) - Results Results: Laboratory Results WBC 14.1 x10^3/uL (4.8-10.8) H 11/01/20 05:12 RBC 3.94 10^6/uL (4.70-6.10) L 11/01/20 05:12 Hgb 9.9 g/dL (14.0-18.0) L 11/01/20 05:12 Hct 31.0 % (42.0-52.0) L 11/01/20 05:12 MCV 78.7 fL (80.0-94.0) L 11/01/20 05:12 MCH 25.1 pg (27.0-31.0) L 11/01/20 05:12 MCHC 31.9 g/dL (32.0-36.0) L 11/01/20 05:12 RDW 17.2 % (12.0-15.0) H 11/01/20 05:12 Plt Count 450 10^3/uL (130-450) 11/01/20 05:12 MPV 11.7 fL (7.4-11.4) H 11/01/20 05:12 Neut # (Auto) 12.6 10^3/uL (1.5-6.6) H 11/01/20 05:12 Lymph # (Auto) 0.7 10^3/uL (1.5-3.5) L 11/01/20 05:12 [place] # (Auto) 0.7 10^3/uL (0.0-1.0) 11/01/20 05:12 Eos # (Auto) 0.0 10^3/uL (0.0-0.7) 11/01/20 05:12 Baso # (Auto) 0.0 10^3/uL (0.0-0.1) 11/01/20 05:12 Absolute Nucleated RBC 0.00 x10^3/uL 11/01/20 05:12 Total Counted 100 10/30/20 05:19 Band Neuts % (Manual) 16 % (0-10) H 10/30/20 05:19 Abnorm Lymph % (Manual) 0 % 10/30/20 05:19 Nucleated RBC % 0.0 /100WBC 11/01/20 05:12 Neutrophils # (Manual) 28.4 10^3/uL (1.5-6.6) H 10/30/20 05:19 Lymphocytes # (Manual) 1.5 10^3/uL (1.5-3.5) 10/30/20 05:19 Monocytes # (Manual) 0.3 10^3/uL (0.0-1.0) 10/30/20 05:19 Eosinophils # (Manual) 0.0 10^3/uL (0-0.7) 10/30/20 05:19 Basophils # (Manual) 0.0 10^3/uL (0-0.1) 10/30/20 05:19 Differential Comment MANUAL DIFFERENTIAL 10/30/20 05:19 Platelet Estimate NORMAL (130-450,000) (NORMAL) 10/30/20 05:19 RBC Morph Micro Appear NORMAL APPEARANCE (NORMAL) 10/30/20 05:19 Sodium 137 mmol/L (135-145) 11/01/20 05:12 Potassium 3.8 mmol/L (3.5-5.0) 11/01/20 05:12 Chloride 96 mmol/L (101-111) L 11/01/20 05:12 Carbon Dioxide 30 mmol/L (21-32) 11/01/20 05:12 Anion Gap 11.0 (6-13) 11/01/20 05:12 BUN 31 mg/dL (6-20) H 11/01/20 05:12 Creatinine 0.6 mg/dL (0.6-1.2) 11/01/20 05:12 Estimated GFR (MDRD) 129 (>89) 11/01/20 05:12 Glucose 109 mg/dL (70-100) H 11/01/20 05:12 Calcium 8.7 mg/dL (8.5-10.3) 11/01/20 05:12 Magnesium 1.9 mg/dL (1.7-2.8) 10/31/20 04:21 Iron 32 ug/dL (45-182) L 10/31/20 04:21 TIBC 276 ug/dL (250-450) 10/31/20 04:21 % Saturation 12 % (20-50) L 10/31/20 04:21 Transferrin 197 mg/dL (180-329) 10/31/20 04:21 Total Bilirubin 0.4 mg/dL (0.2-1.0) 10/29/20 18:10 AST 17 IU/L (10-42) 10/29/20 18:10 ALT 14 IU/L (10-60) 10/29/20 18:10 Alkaline Phosphatase 54 IU/L (42-121) 10/29/20 18:10 Troponin I High Sens 249.2 ng/L (2.3-19.7) H* 10/30/20 17:45 B-Natriuretic Peptide 933 pg/mL (5-100) H 10/31/20 04:21 Total Protein 7.1 g/dL (6.7-8.2) 10/29/20 18:10 Albumin 3.5 g/dL (3.2-5.5) 10/29/20 18:10 Globulin 3.6 g/dL (2.1-4.2) 10/29/20 18:10 Albumin/Globulin Ratio 1.0 (1.0-2.2) 10/29/20 18:10 Lipase 27 U/L (22-51) 10/29/20 18:10 Vitamin B12 174 pg/mL (180-914) L 10/31/20 04:21 Folate 5.21 ng/mL (5.90 - >24.8) L 10/31/20 04:21 Urine Color DARK YELLOW 10/30/20 11:15 Urine Clarity CLEAR (CLEAR) 10/30/20 11:15 Urine pH 5.5 PH (5.0-7.5) 10/30/20 11:15 Ur Specific [place] >=1.030 (1.002-1.030) H 10/30/20 11:15 Urine Protein NEGATIVE mg/dL (NEGATIVE) 10/30/20 11:15 Urine Glucose (UA) NEGATIVE mg/dL (NEGATIVE) 10/30/20 11:15 Urine Ketones TRACE mg/dL (NEGATIVE) 10/30/20 11:15 Urine Occult Blood MODERATE (NEGATIVE) H 10/30/20 11:15 Urine Nitrite NEGATIVE (NEGATIVE) 10/30/20 11:15 Urine Bilirubin NEGATIVE (NEGATIVE) 10/30/20 11:15 Urine Urobilinogen 0.2 (NORMAL) E.U./dL (NORMAL) 10/30/20 11:15 Ur Leukocyte Esterase NEGATIVE (NEGATIVE) 10/30/20 11:15 Urine RBC 6-10 /HPF (0-5) H 10/30/20 11:15 Urine WBC 0-3 /HPF (0-3) 10/30/20 11:15 Ur Squamous Epith Cells NONE SEEN (<= Few) 10/30/20 11:15 Urine Bacteria Few /HPF (None Seen) 10/30/20 11:15 Urine Culture Comments NOT INDICATED 10/30/20 11:15 Nasal Adenovirus (PCR) NOT DETECTED 10/29/20 21:23 Nasal B. parapertussis DNA (PCR) NOT DETECTED 10/29/20 21:23 Nasal Coronavir 229E PCR NOT DETECTED 10/29/20 21:23 Nasal Coronavir HKU1 PCR NOT DETECTED 10/29/20 21:23 Nasal Coronavir NL63 PCR NOT DETECTED 10/29/20 21:23 Nasal Coronavir OC43 PCR NOT DETECTED 10/29/20 21:23 Nasal Enterovir/Rhinovir PCR NOT DETECTED 10/29/20 21:23 Nasal Influenza B PCR NOT DETECTED 10/29/20 21:23 Nasal Influenza A PCR NOT DETECTED 10/29/20 21:23 Nasal Parainfluen 1 PCR NOT DETECTED 10/29/20 21:23 Nasal Parainfluen 2 PCR NOT DETECTED 10/29/20 21:23 Nasal Parainfluen 3 PCR NOT DETECTED 10/29/20 21:23 Nasal Parainfluen 4 PCR NOT DETECTED 10/29/20 21:23 Nasal RSV (PCR) NOT DETECTED 10/29/20 21:23 Nasal Screen MRSA (PCR) NEGATIVE (NEGATIVE) 10/29/20 23:00 Nasal B.pertussis DNA PCR NOT DETECTED 10/29/20 21:23 Nasal C.pneumoniae (PCR) NOT DETECTED 10/29/20 21:23 Vadim Human Metapneumo PCR NOT DETECTED 10/29/20 21:23 Nasal M.pneumoniae (PCR) NOT DETECTED 10/29/20 21:23 Nasal SARS-CoV-2 (PCR) NOT DETECTED 10/29/20 21:23
[2020-11-01] MEDS ORDERED: FUROSEMIDE 20 MG/2 ML VIAL IVP SCH (09:00)
[2020-11-01] MEDS: GLYCOPYRROLATE 1 MG/5 ML VIAL SUBQ PRN ×2 (10:12→18:31)
[2020-11-01] MEDS ORDERED: LEVALBUTEROL 1.25 MG/3 ML NEB INH SCH (14:00)
[2020-11-01] MEDS: CARBOXYMETHYLCELLULOSE OPHTH DROPS EACHEYE SCH (21:22)
[2020-11-02] MEDS: MORPHINE 2 MG/ML CARPUJECT IVP PRN ×4 (02:04→17:35)
[2020-11-02] MEDS: SODIUM CHLORIDE FLUSH 0.9% 10 ML SYRINGE IVP SCH ×4 (02:05→23:36)
[2020-11-02] MEDS: SODIUM CHLORIDE FLUSH 0.9% 10 ML SYRINGE IVP PRN ×3 (02:08→13:42)
[2020-11-02] MEDS: GLYCOPYRROLATE 1 MG/5 ML VIAL SUBQ PRN (02:14)
[2020-11-02] MEDS: methylPREDNISolone SUCCINATE 40 MG/ML VIAL IVP SCH ×3 (05:40→23:36)
--- NOTE | 2020-11-02 17:00 | PROVIDER PROGRESS NOTE ---
Assessment/Plan - Problem List (1) Pulmonary cachexia due to COPD Assessment/Plan: The patient Is severely cachectic, was unable eat or drink during this entire admission, had not been eating at home because of shortness of breath. He is now on comfort care, as requested by the family, after their discussion with Dr. Beasley, medical director of hospice medical record specialist. Social work is trying to locate a place for fpc care and he is already getting the comfort measures medications including morphine, scopolamine patch, has a Berry. (2) Comfort measures only status Assessment/Plan: As above (3) Acute respiratory failure with hypoxia Assessment/Plan: Stable on a low level of supplemental oxygen. (4) COPD exacerbation Assessment/Plan: On his current nebs plus steroids (5) NSTEMI (non-ST elevated myocardial infarction) Assessment/Plan: Stabilized and respiratory status stabilized (6) CHF (congestive heart failure) Assessment/Plan: F was 45% on echo. He is not in overt heart failure. The morphine dose needed to be increased a little today because of "air hunger" (7) Fracture of femoral neck, left Qualifiers: Encounter type: subsequent encounter Fracture type: closed Assessment/Plan: Not a surgical candidate because of severe comorbidities. He is bedbound now. (8) Anemia Assessment/Plan: Because of being transition to comfort care and hospice and imminently dying in the next several days, his B12, folate, low iron or not replace (9) Severe protein-calorie malnutrition Assessment/Plan: As above. #1 (10) Somnolence Assessment/Plan: His morphine dose for dyspnea and pain has been titrated to allow him to rest comfortably and he has never awoken enough to speak in sentences or to swallow (11) Elevated WBC count Assessment/Plan: Resolved. As of yesterday no further lab draws being done (12) Atrial fibrillation with rapid ventricular response Assessment/Plan: Resolved, he converted to sinus rhythm - Current Meds Current Meds: Current Medications Generic Name Dose Route Start Last Admin Trade Name Freq PRN Reason Stop Dose Admin Albuterol/Ipratropium 3 ml 10/29/20 21:50 10/30/20 20:17 Ipratropium/Albuterol 3 Ml Neb INH 3 ml Q4HR PRN Administration Wheezing Carboxymethylcellulose 1 drops 11/01/20 21:00 11/01/20 21:22 Carboxymethylcellulose Ophth Drops EACHEYE 1 applic QPM MO Administration Glycopyrrolate 0.2 mg 11/01/20 08:49 11/02/20 02:14 Glycopyrrolate 1 Mg/5 Ml Vial SUBQ 0.2 mg Q4H PRN Administration Excessive secretions Methylprednisolone 40 mg 11/01/20 14:00 11/02/20 13:42 Methylprednisolone Succinate 40 Mg/Ml Vial IVP 40 mg TID MO Administration Morphine Sulfate 1 mg 11/02/20 12:08 11/02/20 13:41 Morphine 2 Mg/Ml Carpuject IVP 1 mg Q2HR PRN Administration Dyspnea Sodium Chloride 10 ml 10/30/20 01:00 11/02/20 09:03 Sodium Chloride Flush 0.9% 10 Ml Syringe IVP 10 ml 0100,0900,1700 MO Administration Sodium Chloride 10 ml 10/29/20 21:40 11/02/20 13:42 Sodium Chloride Flush 0.9% 10 Ml Syringe IVP 10 ml PRN PRN Administration NEEDED PER PROVIDER ORDERS - Lab Result Fish Bone Diagrams: 11/01/20 05:12 11/01/20 05:12 - Additional Planning My Orders: My Active Orders 11/01/20 21:00 Carboxymethylcellulose 1% Opht [Refresh 1% Ophth Drops] 1 drops EACHEYE QPM 11/02/20 12:08 Morphine Inj (Carpuject) [Morphine (Carpuject)] 1 mg IVP Q2HR PRN Subjective - Subjective Nursing Reports: Other (Oral mucosa dry, intermittently gets air hunger, he is able to push out the [place] or move in bed if he refuses something) Objective Vital Signs: Vital Signs - 24 hr 11/01/20 11/02/20 11/02/20 23:45 05:58 06:05 Temperature 37.2 C Heart Rate [ 80 Brachial] Heart Rate [ 90 Radial] Respiratory 21 20 Rate Blood Pressure 151/90 H [Right Brachial artery] O2 Saturation 98 84 L 90 L 11/02/20 11/02/20 11/02/20 07:00 09:00 15:53 Temperature 36.8 C Heart Rate [ 83 Brachial] Heart Rate [ 112 H Radial] Respiratory 32 H 26 H Rate Blood Pressure 134/77 H [Right Brachial artery] O2 Saturation 90 L 79 L 89 L Oxygen O2 Source Nasal cannula Oxygen Flow Rate 3 I&O (Last 24 Hrs): Intake and Output Totals x24h 10/31/20 11/01/20 11/02/20 23:59 23:59 23:59 Intake Total 84 600 Output Total 3185 1875 725 Balance -2306 -9366 -816 General: Other (somnolent, sunken eyes, temporal wasting, tenting of skin present) HEENT: Other (Dry oral mucosa) Neuro: Other (Lethargic) Cardiovascular: Regular rate Respiratory: No respiratory distress (On O2 by n.c.) Abdomen: Soft Extremities: No edema, Other (Emaciated) - Results Results: Laboratory Results WBC 14.1 x10^3/uL (4.8-10.8) H 11/01/20 05:12 RBC 3.94 10^6/uL (4.70-6.10) L 11/01/20 05:12 Hgb 9.9 g/dL (14.0-18.0) L 11/01/20 05:12 Hct 31.0 % (42.0-52.0) L 11/01/20 05:12 MCV 78.7 fL (80.0-94.0) L 11/01/20 05:12 MCH 25.1 pg (27.0-31.0) L 11/01/20 05:12 MCHC 31.9 g/dL (32.0-36.0) L 11/01/20 05:12 RDW 17.2 % (12.0-15.0) H 11/01/20 05:12 Plt Count 450 10^3/uL (130-450) 11/01/20 05:12 MPV 11.7 fL (7.4-11.4) H 11/01/20 05:12 Neut # (Auto) 12.6 10^3/uL (1.5-6.6) H 11/01/20 05:12 Lymph # (Auto) 0.7 10^3/uL (1.5-3.5) L 11/01/20 05:12 [place] # (Auto) 0.7 10^3/uL (0.0-1.0) 11/01/20 05:12 Eos # (Auto) 0.0 10^3/uL (0.0-0.7) 11/01/20 05:12 Baso # (Auto) 0.0 10^3/uL (0.0-0.1) 11/01/20 05:12 Absolute Nucleated RBC 0.00 x10^3/uL 11/01/20 05:12 Total Counted 100 10/30/20 05:19 Band Neuts % (Manual) 16 % (0-10) H 10/30/20 05:19 Abnorm Lymph % (Manual) 0 % 10/30/20 05:19 Nucleated RBC % 0.0 /100WBC 11/01/20 05:12 Neutrophils # (Manual) 28.4 10^3/uL (1.5-6.6) H 10/30/20 05:19 Lymphocytes # (Manual) 1.5 10^3/uL (1.5-3.5) 10/30/20 05:19 Monocytes # (Manual) 0.3 10^3/uL (0.0-1.0) 10/30/20 05:19 Eosinophils # (Manual) 0.0 10^3/uL (0-0.7) 10/30/20 05:19 Basophils # (Manual) 0.0 10^3/uL (0-0.1) 10/30/20 05:19 Differential Comment MANUAL DIFFERENTIAL 10/30/20 05:19 Platelet Estimate NORMAL (130-450,000) (NORMAL) 10/30/20 05:19 RBC Morph Micro Appear NORMAL APPEARANCE (NORMAL) 10/30/20 05:19 Sodium 137 mmol/L (135-145) 11/01/20 05:12 Potassium 3.8 mmol/L (3.5-5.0) 11/01/20 05:12 Chloride 96 mmol/L (101-111) L 11/01/20 05:12 Carbon Dioxide 30 mmol/L (21-32) 11/01/20 05:12 Anion Gap 11.0 (6-13) 11/01/20 05:12 BUN 31 mg/dL (6-20) H 11/01/20 05:12 Creatinine 0.6 mg/dL (0.6-1.2) 11/01/20 05:12 Estimated GFR (MDRD) 129 (>89) 11/01/20 05:12 Glucose 109 mg/dL (70-100) H 11/01/20 05:12 Calcium 8.7 mg/dL (8.5-10.3) 11/01/20 05:12 Magnesium 1.9 mg/dL (1.7-2.8) 10/31/20 04:21 Iron 32 ug/dL (45-182) L 10/31/20 04:21 TIBC 276 ug/dL (250-450) 10/31/20 04:21 % Saturation 12 % (20-50) L 10/31/20 04:21 Transferrin 197 mg/dL (180-329) 10/31/20 04:21 Total Bilirubin 0.4 mg/dL (0.2-1.0) 10/29/20 18:10 AST 17 IU/L (10-42) 10/29/20 18:10 ALT 14 IU/L (10-60) 10/29/20 18:10 Alkaline Phosphatase 54 IU/L (42-121) 10/29/20 18:10 Troponin I High Sens 249.2 ng/L (2.3-19.7) H* 10/30/20 17:45 B-Natriuretic Peptide 933 pg/mL (5-100) H 10/31/20 04:21 Total Protein 7.1 g/dL (6.7-8.2) 10/29/20 18:10 Albumin 3.5 g/dL (3.2-5.5) 10/29/20 18:10 Globulin 3.6 g/dL (2.1-4.2) 10/29/20 18:10 Albumin/Globulin Ratio 1.0 (1.0-2.2) 10/29/20 18:10 Lipase 27 U/L (22-51) 10/29/20 18:10 Vitamin B12 174 pg/mL (180-914) L 10/31/20 04:21 Folate 5.21 ng/mL (5.90 - >24.8) L 10/31/20 04:21 Urine Color DARK YELLOW 10/30/20 11:15 Urine Clarity CLEAR (CLEAR) 10/30/20 11:15 Urine pH 5.5 PH (5.0-7.5) 10/30/20 11:15 Ur Specific [place] >=1.030 (1.002-1.030) H 10/30/20 11:15 Urine Protein NEGATIVE mg/dL (NEGATIVE) 10/30/20 11:15 Urine Glucose (UA) NEGATIVE mg/dL (NEGATIVE) 10/30/20 11:15 Urine Ketones TRACE mg/dL (NEGATIVE) 10/30/20 11:15 Urine Occult Blood MODERATE (NEGATIVE) H 10/30/20 11:15 Urine Nitrite NEGATIVE (NEGATIVE) 10/30/20 11:15 Urine Bilirubin NEGATIVE (NEGATIVE) 10/30/20 11:15 Urine Urobilinogen 0.2 (NORMAL) E.U./dL (NORMAL) 10/30/20 11:15 Ur Leukocyte Esterase NEGATIVE (NEGATIVE) 10/30/20 11:15 Urine RBC 6-10 /HPF (0-5) H 10/30/20 11:15 Urine WBC 0-3 /HPF (0-3) 10/30/20 11:15 Ur Squamous Epith Cells NONE SEEN (<= Few) 10/30/20 11:15 Urine Bacteria Few /HPF (None Seen) 10/30/20 11:15 Urine Culture Comments NOT INDICATED 10/30/20 11:15 Nasal Adenovirus (PCR) NOT DETECTED 10/29/20 21:23 Nasal B. parapertussis DNA (PCR) NOT DETECTED 10/29/20 21:23 Nasal Coronavir 229E PCR NOT DETECTED 10/29/20 21:23 Nasal Coronavir HKU1 PCR NOT DETECTED 10/29/20 21:23 Nasal Coronavir NL63 PCR NOT DETECTED 10/29/20 21:23 Nasal Coronavir OC43 PCR NOT DETECTED 10/29/20 21:23 Nasal Enterovir/Rhinovir PCR NOT DETECTED 10/29/20 21:23 Nasal Influenza B PCR NOT DETECTED 10/29/20 21:23 Nasal Influenza A PCR NOT DETECTED 10/29/20 21:23 Nasal Parainfluen 1 PCR NOT DETECTED 10/29/20 21:23 Nasal Parainfluen 2 PCR NOT DETECTED 10/29/20 21:23 Nasal Parainfluen 3 PCR NOT DETECTED 10/29/20 21:23 Nasal Parainfluen 4 PCR NOT DETECTED 10/29/20 21:23 Nasal RSV (PCR) NOT DETECTED 10/29/20 21:23 Nasal Screen MRSA (PCR) NEGATIVE (NEGATIVE) 10/29/20 23:00 Nasal B.pertussis DNA PCR NOT DETECTED 10/29/20 21:23 Nasal C.pneumoniae (PCR) NOT DETECTED 10/29/20 21:23 Vadim Human Metapneumo PCR NOT DETECTED 10/29/20 21:23 Nasal M.pneumoniae (PCR) NOT DETECTED 10/29/20 21:23 Nasal SARS-CoV-2 (PCR) NOT DETECTED 10/29/20 21:23
[2020-11-02] MEDS: CARBOXYMETHYLCELLULOSE OPHTH DROPS EACHEYE SCH (23:36)
[2020-11-03] MEDS: SODIUM CHLORIDE FLUSH 0.9% 10 ML SYRINGE IVP PRN (05:31)
[2020-11-03] MEDS: MORPHINE 2 MG/ML CARPUJECT IVP PRN ×2 (05:31→13:15)
[2020-11-03] MEDS: methylPREDNISolone SUCCINATE 40 MG/ML VIAL IVP SCH ×3 (05:32→21:48)
[2020-11-03] MEDS: SODIUM CHLORIDE FLUSH 0.9% 10 ML SYRINGE IVP SCH ×2 (10:39→16:54)
[2020-11-03 14:51] LABS: B. PARAPERTUSSIS- RESP PCR PAN NOT DETECTED; B. PERTUSSIS- RESP PCR PANEL NOT DETECTED; C. PNEUMONIAE- RESP PCR PANEL NOT DETECTED; CORONAVIRUS 229E-RESP PCR NOT DETECTED; CORONAVIRUS HKU1-RESP PCR NOT DETECTED; CORONAVIRUS NL63-RESP PCR NOT DETECTED; CORONAVIRUS OC43-RESP PCR NOT DETECTED; HUMAN METAPNEUMOVIRUS NOT DETECTED; INFLUENZA A- RESP PCR PANEL NOT DETECTED; INFLUENZA B - RESP PCR PANEL NOT DETECTED; M. PNEUMONIAE- RESP PCR PANEL NOT DETECTED; PARAINFLUENZA VIRUS 1 NOT DETECTED; PARAINFLUENZA VIRUS 2 NOT DETECTED; PARAINFLUENZA VIRUS 3 NOT DETECTED; PARAINFLUENZA VIRUS 4 NOT DETECTED; RHINOVIRUS/ENTEROVIRUS NOT DETECTED; RSV- RESP PCR PANEL NOT DETECTED; SARS-CoV-2 -RESP PCR PANEL NOT DETECTED
--- NOTE | 2020-11-03 14:57 | PROVIDER PROGRESS NOTE ---
Assessment/Plan - Problem List (1) Pulmonary cachexia due to COPD Assessment/Plan: The patient Is severely cachectic, was unable eat or drink during this entire admission, had not been eating at home because of shortness of breath. He is now on comfort care, as requested by the family, after their discussion with Dr. Beasley, medical collections biomedical electronics technician. Social work located a place for retirement care and he will be transferred there tomorrow. He is getting the comfort measures medications including morphine, scopolamine patch, has a Berry. (2) Comfort measures only status Assessment/Plan: As above (3) Acute respiratory failure with hypoxia Assessment/Plan: Stable on a low level of supplemental oxygen. (4) COPD exacerbation Assessment/Plan: Stable on his current nebs and management (5) NSTEMI (non-ST elevated myocardial infarction) Assessment/Plan: He was not a candidate for transfer for invasive management. (6) CHF (congestive heart failure) Assessment/Plan: LVEF was 45% on echo. He is not in overt heart failure. The morphine dose needed to be increased a little yesterday because of "air hunger" (7) Fracture of femoral neck, left Qualifiers: Encounter type: subsequent encounter Fracture type: closed Assessment/Plan: Not a surgical candidate because of severe comorbidities. He is bedbound now. (8) Anemia Assessment/Plan: Because of being transitioned to comfort care and hospice and imminently dying in the next several days, his low B12, low folate, and low iron levels were not replaced. No more lab draws being done (9) Severe protein-calorie malnutrition Assessment/Plan: As above #1 He is swallowing coffee on a spoon and tolerating it, this is the first thing he is swallowed the entire admission (10) Somnolence Assessment/Plan: Resolved, today is the first day he has been awake during the entire admission. He is swallowing coffee on a spoon and tolerating it, this is the first thing he is swallowed the entire admission (11) Elevated WBC count Assessment/Plan: Resolved without antibiotics, it was probably a stress response (12) Atrial fibrillation with rapid ventricular response Assessment/Plan: He converted to sinus rhythm - Current Meds Current Meds: Current Medications Generic Name Dose Route Start Last Admin Trade Name Freq PRN Reason Stop Dose Admin Albuterol/Ipratropium 3 ml 10/29/20 21:50 10/30/20 20:17 Ipratropium/Albuterol 3 Ml Neb INH 3 ml Q4HR PRN Administration Wheezing Carboxymethylcellulose 1 drops 11/01/20 21:00 11/02/20 23:36 Carboxymethylcellulose Ophth Drops EACHEYE 1 applic QPM MO Administration Glycopyrrolate 0.2 mg 11/01/20 08:49 11/02/20 02:14 Glycopyrrolate 1 Mg/5 Ml Vial SUBQ 0.2 mg Q4H PRN Administration Excessive secretions Methylprednisolone 40 mg 11/01/20 14:00 11/03/20 13:15 Methylprednisolone Succinate 40 Mg/Ml Vial IVP 40 mg TID MO Administration Morphine Sulfate 1 mg 11/02/20 12:08 11/03/20 13:15 Morphine 2 Mg/Ml Carpuject IVP 1 mg Q2HR PRN Administration Dyspnea Sodium Chloride 10 ml 10/30/20 01:00 11/03/20 10:39 Sodium Chloride Flush 0.9% 10 Ml Syringe IVP Not Given 0100,0900,1700 MO Sodium Chloride 10 ml 10/29/20 21:40 11/03/20 05:31 Sodium Chloride Flush 0.9% 10 Ml Syringe IVP 10 ml PRN PRN Administration NEEDED PER PROVIDER ORDERS - Lab Result Fish Bone Diagrams: 11/01/20 05:12 11/01/20 05:12 Subjective - Subjective Patient Reports: Other (Awake, swallowing, being fed, whispering short answers) Objective Vital Signs: Vital Signs - 24 hr 11/02/20 11/03/20 11/03/20 15:53 00:49 08:50 Temperature 36.8 C 36.4 C L 36.4 C L Heart Rate [ 83 Brachial] Heart Rate [ 62 76 Radial] Respiratory 26 H 22 16 Rate Blood Pressure 138/77 H [Left Brachial artery] Blood Pressure 134/77 H 108/67 [Right Brachial artery] O2 Saturation 89 L 99 99 Oxygen O2 Source Nasal cannula Oxygen Flow Rate 3 I&O (Last 24 Hrs): Intake and Output Totals x24h 11/01/20 11/02/20 11/03/20 23:59 23:59 23:59 Intake Total 600 10 Output Total 8822 970 713 Balance -1275 -965 -968 General: Alert HEENT: Mucous membr. moist/pink, Other (Sunken eyes, temporal wasting, edentulous) Neck: Supple Neuro: Alert, Other Cardiovascular: Regular rate Respiratory: No respiratory distress (Wearing O2 by nasal cannula) Extremities: No edema, Other (Thin and emaciated) - Results Results: Laboratory Results WBC 14.1 x10^3/uL (4.8-10.8) H 11/01/20 05:12 RBC 3.94 10^6/uL (4.70-6.10) L 11/01/20 05:12 Hgb 9.9 g/dL (14.0-18.0) L 11/01/20 05:12 Hct 31.0 % (42.0-52.0) L 11/01/20 05:12 MCV 78.7 fL (80.0-94.0) L 11/01/20 05:12 MCH 25.1 pg (27.0-31.0) L 11/01/20 05:12 MCHC 31.9 g/dL (32.0-36.0) L 11/01/20 05:12 RDW 17.2 % (12.0-15.0) H 11/01/20 05:12 Plt Count 450 10^3/uL (130-450) 11/01/20 05:12 MPV 11.7 fL (7.4-11.4) H 11/01/20 05:12 Neut # (Auto) 12.6 10^3/uL (1.5-6.6) H 11/01/20 05:12 Lymph # (Auto) 0.7 10^3/uL (1.5-3.5) L 11/01/20 05:12 [place] # (Auto) 0.7 10^3/uL (0.0-1.0) 11/01/20 05:12 Eos # (Auto) 0.0 10^3/uL (0.0-0.7) 11/01/20 05:12 Baso # (Auto) 0.0 10^3/uL (0.0-0.1) 11/01/20 05:12 Absolute Nucleated RBC 0.00 x10^3/uL 11/01/20 05:12 Total Counted 100 10/30/20 05:19 Band Neuts % (Manual) 16 % (0-10) H 10/30/20 05:19 Abnorm Lymph % (Manual) 0 % 10/30/20 05:19 Nucleated RBC % 0.0 /100WBC 11/01/20 05:12 Neutrophils # (Manual) 28.4 10^3/uL (1.5-6.6) H 10/30/20 05:19 Lymphocytes # (Manual) 1.5 10^3/uL (1.5-3.5) 10/30/20 05:19 Monocytes # (Manual) 0.3 10^3/uL (0.0-1.0) 10/30/20 05:19 Eosinophils # (Manual) 0.0 10^3/uL (0-0.7) 10/30/20 05:19 Basophils # (Manual) 0.0 10^3/uL (0-0.1) 10/30/20 05:19 Differential Comment MANUAL DIFFERENTIAL 10/30/20 05:19 Platelet Estimate NORMAL (130-450,000) (NORMAL) 10/30/20 05:19 RBC Morph Micro Appear NORMAL APPEARANCE (NORMAL) 10/30/20 05:19 Sodium 137 mmol/L (135-145) 11/01/20 05:12 Potassium 3.8 mmol/L (3.5-5.0) 11/01/20 05:12 Chloride 96 mmol/L (101-111) L 11/01/20 05:12 Carbon Dioxide 30 mmol/L (21-32) 11/01/20 05:12 Anion Gap 11.0 (6-13) 11/01/20 05:12 BUN 31 mg/dL (6-20) H 11/01/20 05:12 Creatinine 0.6 mg/dL (0.6-1.2) 11/01/20 05:12 Estimated GFR (MDRD) 129 (>89) 11/01/20 05:12 Glucose 109 mg/dL (70-100) H 11/01/20 05:12 Calcium 8.7 mg/dL (8.5-10.3) 11/01/20 05:12 Magnesium 1.9 mg/dL (1.7-2.8) 10/31/20 04:21 Iron 32 ug/dL (45-182) L 10/31/20 04:21 TIBC 276 ug/dL (250-450) 10/31/20 04:21 % Saturation 12 % (20-50) L 10/31/20 04:21 Transferrin 197 mg/dL (180-329) 10/31/20 04:21 Total Bilirubin 0.4 mg/dL (0.2-1.0) 10/29/20 18:10 AST 17 IU/L (10-42) 10/29/20 18:10 ALT 14 IU/L (10-60) 10/29/20 18:10 Alkaline Phosphatase 54 IU/L (42-121) 10/29/20 18:10 Troponin I High Sens 249.2 ng/L (2.3-19.7) H* 10/30/20 17:45 B-Natriuretic Peptide 933 pg/mL (5-100) H 10/31/20 04:21 Total Protein 7.1 g/dL (6.7-8.2) 10/29/20 18:10 Albumin 3.5 g/dL (3.2-5.5) 10/29/20 18:10 Globulin 3.6 g/dL (2.1-4.2) 10/29/20 18:10 Albumin/Globulin Ratio 1.0 (1.0-2.2) 10/29/20 18:10 Lipase 27 U/L (22-51) 10/29/20 18:10 Vitamin B12 174 pg/mL (180-914) L 10/31/20 04:21 Folate 5.21 ng/mL (5.90 - >24.8) L 10/31/20 04:21 Urine Color DARK YELLOW 10/30/20 11:15 Urine Clarity CLEAR (CLEAR) 10/30/20 11:15 Urine pH 5.5 PH (5.0-7.5) 10/30/20 11:15 Ur Specific [place] >=1.030 (1.002-1.030) H 10/30/20 11:15 Urine Protein NEGATIVE mg/dL (NEGATIVE) 10/30/20 11:15 Urine Glucose (UA) NEGATIVE mg/dL (NEGATIVE) 10/30/20 11:15 Urine Ketones TRACE mg/dL (NEGATIVE) 10/30/20 11:15 Urine Occult Blood MODERATE (NEGATIVE) H 10/30/20 11:15 Urine Nitrite NEGATIVE (NEGATIVE) 10/30/20 11:15 Urine Bilirubin NEGATIVE (NEGATIVE) 10/30/20 11:15 Urine Urobilinogen 0.2 (NORMAL) E.U./dL (NORMAL) 10/30/20 11:15 Ur Leukocyte Esterase NEGATIVE (NEGATIVE) 10/30/20 11:15 Urine RBC 6-10 /HPF (0-5) H 10/30/20 11:15 Urine WBC 0-3 /HPF (0-3) 10/30/20 11:15 Ur Squamous Epith Cells NONE SEEN (<= Few) 10/30/20 11:15 Urine Bacteria Few /HPF (None Seen) 10/30/20 11:15 Urine Culture Comments NOT INDICATED 10/30/20 11:15 Nasal Adenovirus (PCR) NOT DETECTED 11/03/20 13:45 Nasal B. parapertussis DNA (PCR) NOT DETECTED 11/03/20 13:45 Nasal Coronavir 229E PCR NOT DETECTED 11/03/20 13:45 Nasal Coronavir HKU1 PCR NOT DETECTED 11/03/20 13:45 Nasal Coronavir NL63 PCR NOT DETECTED 11/03/20 13:45 Nasal Coronavir OC43 PCR NOT DETECTED 11/03/20 13:45 Nasal Enterovir/Rhinovir PCR NOT DETECTED 11/03/20 13:45 Nasal Influenza B PCR NOT DETECTED 11/03/20 13:45 Nasal Influenza A PCR NOT DETECTED 11/03/20 13:45 Nasal Parainfluen 1 PCR NOT DETECTED 11/03/20 13:45 Nasal Parainfluen 2 PCR NOT DETECTED 11/03/20 13:45 Nasal Parainfluen 3 PCR NOT DETECTED 11/03/20 13:45 Nasal Parainfluen 4 PCR NOT DETECTED 11/03/20 13:45 Nasal RSV (PCR) NOT DETECTED 11/03/20 13:45 Nasal Screen MRSA (PCR) NEGATIVE (NEGATIVE) 10/29/20 23:00 Nasal B.pertussis DNA PCR NOT DETECTED 11/03/20 13:45 Nasal C.pneumoniae (PCR) NOT DETECTED 11/03/20 13:45 Vadim Human Metapneumo PCR NOT DETECTED 11/03/20 13:45 Nasal M.pneumoniae (PCR) NOT DETECTED 11/03/20 13:45 Nasal SARS-CoV-2 (PCR) NOT DETECTED 11/03/20 13:45
[2020-11-03] MEDS: CARBOXYMETHYLCELLULOSE OPHTH DROPS EACHEYE SCH (21:48)
[2020-11-04] MEDS: SODIUM CHLORIDE FLUSH 0.9% 10 ML SYRINGE IVP SCH ×2 (00:53→09:29)
[2020-11-04] MEDS: methylPREDNISolone SUCCINATE 40 MG/ML VIAL IVP SCH (06:15)
[2020-11-04] MEDS: SODIUM CHLORIDE FLUSH 0.9% 10 ML SYRINGE IVP PRN (06:15)
[2020-11-04] MEDS: MORPHINE 2 MG/ML CARPUJECT IVP PRN ×2 (09:29→11:01)
--- NOTE | 2020-11-04 11:08 | Discharge Plan ---
Discharge Plan for SNF / [facility] - Discharge Plan And Transition Orders Problem Reviewed?: Yes Disposition: 50 Hospice/Home DC/Xfer Condition: Serious Allergies and Adverse Reactions: Allergies Allergy/AdvReac Type Severity Reaction Status Date / Time No Known Drug Allergies Allergy Verified 10/29/20 17:56 Health Concerns: hospice care Plan of Treatment: followup with hospice care Care Goals: quality of life, comfort measure, and hospice care - SNF / [facility] Transition Orders Admit to (Facility): [facility] Under the care of (Name): Dr. Beasley Discharge Diagnosis: pulmonary cachexia due to COPD, fracture of left femoral neck, COPD exacerbation, NSTEMI, CHF, anemia, severe protein-calorie malnutrition, afib with RVR. Medicare Certification Statement: I certify that [facility] Hospital residential care is medically necessary on a continuing basis for any of the conditions for which she/he is receiving care during hospitalization. Notify PCP of admission and forward orders to primary provider for signature. Other Notification Orders: Call PCP immediately if patient develops dyspnea, chest pain/tightness or edema. Additional Bowel Program Orders: If no BM after 2 days, nurse may give M.O.M. 30ml PO PRN and/or ducolax Supp 1 HI and/or CHRISTY 250mg P.O., and/or senna 1-2 tabs PO. On day 3 nurse may give repeat above order until residents constipation is resolved. Treatments & Other Orders: followup with hospice care Oxygen Orders: 2 lpm of O2 by [place] or as needed. Medication Orders: PLEASE REFER TO THE DISCHARGE MEDICATION LIST. Insulin Orders?: No - Medications New Prescriptions: Morphine Sulfate [Morphine Sulf Oral (Roxanol)] 5 mg PO Q2H PRN #30 ml PRN Reason: Pain/Dyspnea - Diet Type: Geriatric Texture: Regular Liquids: Thin May have monthly special meal: Yes
--- NOTE | 2020-11-04 11:26 | DISCHARGE SUMMARY ---
"Discharge Summary Admit Date: 10/29/20 Discharge Date: 11/04/20 Discharging Provider: Gianni Briggs Primary Care Provider: [facility] [place] Condition at Discharge: Serious Discharge Disposition: 50 Hospice/Home DC/Xfer Discharge Facility Name: [facility] - DIAGNOSES Discharge Diagnoses with Status of Each Condition: (1) Pulmonary cachexia due to COPD The patient had severely cachectic. after other medical provider discussed the care plan with pt's family and Dr. Beasley, hospice care, pt was d/c to [facility] for assisted care and hospice care. Dr. Beasley, medical investigator medical observer, will followup with hospice care for pt. He had the comfort measures medications including morphine, scopolamine patch, has a Berry in hospital. (2) Comfort measures only status pt had comfort care measure at hospital. (3) Acute respiratory failure with hypoxia Stable 2-3lpm of supplemental oxygen by [place]. (4) COPD exacerbation improved at hospital. pt was given lower dosage of steroid at hospital. Since pt is d/c with hospice care, we order Morphine for pt and hold steroid for his d/c. Since hospice care provider will see pt on this afternoon, pt's meds can be adjusted as needed. (5) NSTEMI (non-ST elevated myocardial infarction) He was not a candidate for transfer for invasive management. pt had comfort care measure at hospital, and followup with hospice care. (6) CHF (congestive heart failure) LVEF was 45% on echo.followup with hospice care. (7) Fracture of femoral neck, left Not a surgical candidate because of severe comorbidities per other medical provider's assessment. Family agreed the care plan, and followup with hospice care and pain control. He is bedbound now. (8) Anemia Because of being transitioned to comfort care and hospice, his low B12, low folate, and low iron levels were not replaced by other medical provider. No more lab draws being done in the hospital. pt is followup with hospice care. (9) Severe protein-calorie malnutrition followup with hospice care. (10) Atrial fibrillation with rapid ventricular response He converted to sinus rhythm - [facility] History of Present Illness: refer from Dr. Jones's HPI on 10/29/20 Patient he is very frail/cachectic 79-year-old male who presented to the ED after a fall. This happened around 5 PM. He reported that his legs just gave out on the him while he was trying to go to make something for dinner. It was an unwitnessed fall. His neighbor came over to bring him something to eat and found him on the floor. He had just fallen. He lives alone but his daughter brings him food 2-3 times weekly. Also, a home service called [id number] Comes to his house twice a week and helps him with shaving, bathing and cutting his hand. The patient denied chest pain, abdominal pain, nausea, vomiting, fever or chi lls. When EMS arrived the patient's oxygen saturation was 80%. He has severe/end- stage COPD and emphysema and uses 3 L of oxygen via nasal cannula at home. His daughter who was at bedside reports that the patient's breathing has been progressively worsening. In the ED he was noted to be in atrial fibrillation with rapid ventricular rhythm, with a heart rate as high as the 140s. He was given a couple doses of [id number] IV boluses and then started on a diltiazem drip. Work-up also included a CT of the lower extremities which showed a Nondisplaced left femoral neck fracture. He is being admitted for further treatment. - CONSULTS | PROCEDURES Consultations: Dr. Beasley Procedures: hospice care - HOSPITAL COURSE Hospital Course: Patient was admitted for fall, Worsening shortness of breathing, Severe malnutrition with cachectic status. Patient has a history of end-stage COPD With home oxygen supplement, and advanced dementia. In CT of pelvis found the patient had Nondisplaced left femoral neck fracture. Unfortunately patient continue did not take oral food and fluids. After discussed with the patient family for the care plan by our team other provider, Patient's family choose comfortable measure in the hospital and hospice care in the follow-up care in the d/c. Dr. Beasley saw the patient and will follow up the patient for hospice care. patient was discharged to [facility] [place] for assisted care and hospice care. - ALLERGIES Allergies/Adverse Reactions: Allergies Allergy/AdvReac Type Severity Reaction Status Date / Time No Known Drug Allergies Allergy Verified 10/29/20 17:56 - MEDICATIONS Home Medications: Ambulatory Orders Medication Instructions Recorded Confirmed Albuterol 1 puffs INH DAILY 12/13/19 10/29/20 Ipratropium [Atrovent] 0.5 mg INH TID #30 neb 12/13/19 10/29/20 Morphine Sulfate [Morphine Sulf 5 mg PO Q2H PRN #30 ml 11/04/20 Oral (Roxanol)] - PHYSICAL EXAM AT DISCHARGE General Appearance: positive: No acute distress, Alert. negative: Lethargic Eyes Bilateral: positive: Normal inspection, PERRL, No lid inflammation ENT: positive: ENT inspection nml, Pharynx nml. negative: Purulent nasal drainage Neck: positive: Nml inspection. negative: Thyromegaly, Tracheal deviation Respiratory: positive: Chest non-tender, Other (Significantly diminished lung sounds bilaterally) Cardiovascular: positive: Regular rate & rhythm, No murmur. negative: Tachycardia, Bradycardia, Systolic murmur Peripheral Pulses: positive: 2+ Abdomen: positive: Non-tender, Nml bowel sounds, No distention. negative: Tenderness Back: positive: Nml inspection Skin: positive: Color nml, Warm, Dry. negative: Cyanosis Extremities: positive: Non-tender. negative: Calf tenderness Neurologic/Psychiatric: negative: Sensory loss, Facial droop, Slurred/abnml speech - LABS Result Diagrams: 11/01/20 05:12 11/01/20 05:12 - FOLLOW UP Follow Up: Follow-up with hospice care - TIME SPENT Time Spent in Discharge (Minutes): 30"
[2020-11-04] MEDS ORDERED: MORPHINE SOL 10 MG/0.5 ML ORAL SYRINGE PO PRN (11:32)
[2020-11-04 15:43] VITALS: BP 149/71
== END 2020-11-04 15:40 | disposition hospice, home (50) | DRG 189 ==
LOC: EDUNIT# → ED 17:45 → ICU 21:40 → MS2 10-31 13:56
PROVIDERS: ADMIT Internal Medicine; ATTEND Nurse Practitioner Gerontology
DX: J44.1 Chronic obstructive pulmonary disease with (acute) exacerbation (principal); J96.21 Acute and chronic respiratory failure with hypoxia; S72.002A Fracture of unspecified part of neck of left femur, initial encounter for closed fracture; E43 Unspecified severe protein-calorie malnutrition; I21.4 Non-ST elevation (NSTEMI) myocardial infarction; R64 Cachexia; Z68.1 Body mass index [BMI] 19.9 or less, adult; I71.4 Abdominal aortic aneurysm, without rupture; Z20.822 Contact with and (suspected) exposure to COVID-19; Z99.81 Dependence on supplemental oxygen; J43.9 Emphysema, unspecified; I50.9 Heart failure, unspecified; I48.91 Unspecified atrial fibrillation; Z51.5 Encounter for palliative care; Z66 Do not resuscitate; W18.30XA Fall on same level, unspecified, initial encounter; Y92.009 Unspecified place in unspecified non-institutional (private) residence as the place of occurrence of the external cause; Z87.891 Personal history of nicotine dependence; D72.829 Elevated white blood cell count, unspecified; K59.00 Constipation, unspecified; D63.8 Anemia in other chronic diseases classified elsewhere; R40.0 Somnolence; E53.8 Deficiency of other specified B group vitamins; E61.1 Iron deficiency
CPT/HCPCS: 36415; 70450; 71045; 72125; 72170; 73700; 80048; 80053; 81001; 82607; 82746; 83540; 83690; 83735; 83880; 84466; 84484; 85025; 87150; 87631; 93005; 93306; 94640; 96361; 96374; 96375; 99284; 99285; A9270; J7626; 0202U; 87086

== ENCOUNTER 2020-11-04 15:34 | Outpatient (CLI) | payer MEDICARE | END 2020-11-04 15:35 | disposition other institution (70) | LOC: EMS 15:34 | PROVIDERS: ATTEND Internal Medicine | DX: I21.4 Non-ST elevation (NSTEMI) myocardial infarction (principal); S72.92XD Unspecified fracture of left femur, subsequent encounter for closed fracture with routine healing; X58.XXXD Exposure to other specified factors, subsequent encounter; R40.0 Somnolence; Z74.01 Bed confinement status | CPT/HCPCS: A0425; A0428 ==